=== PATIENT | female | born 1965 | race African-American/Black ===

== ENCOUNTER 2022-09-17 12:10 | Emergency (ER) | payer OTHER, SELFPAY ==
[2022-09-17] VITALS (14 sets, daily range): BP systolic 127–180; BP diastolic 78–97; PULSE 58–72; RESP 20; TEMP 36.1; O2SAT 93–97; BMI 36.2
--- NOTE | 2022-09-17 12:45 | CRLHL7_ITS ---
For Patients: As a result of the Century Cures Act, medical imaging exams and procedure reports are released immediately into your electronic medical record. You may view this report before your referring provider. If you have questions, please contact your health care provider. INDICATION: Dyspnea and chest pain COMPARISON: None TECHNIQUE: PA and lateral views of the chest were acquired FINDINGS: TUBES AND LINES: None. HEART AND MEDIASTINUM: The heart size is normal. The mediastinal contour appears normal for patient age. LUNGS AND PLEURAL SPACES: The lungs appear normal.The pleural spaces are unremarkable. OSSEOUS STRUCTURES: Age-appropriate appearance. No acute focal finding. IMPRESSION: No evidence of active pulmonary disease. Dictated by Trevor Orellana MD @ 09/17/2022 2:02:40 PM (Electronically Signed)
--- NOTE | 2022-09-17 12:47 | ED.GENADULT ---
HPI - General Adult General Chief complaint: Chest Pain Stated complaint: Chest pain Time Seen by Provider: 09/17/22 12:27 Source: patient Mode of arrival: ambulatory Limitations: no limitations History of Present Illness HPI narrative: Patient is a 56-year-old female coming in today complaining of chest pain. Pain is located over the right chest. Nothing seems to make it better however sitting up and leaning forward does make it worse. She describes it as a pressure, uncomfortable sensation. Patient states that she exercises several times per week but has not been able exercise over the last week because she has been having some back discomfort. She states that she sits in a chair in zoom meetings most of her day. Increase physical activity does not seem to make her pain worse. The pain started last night right before she went to bed. He did not necessarily wake her up at night but she did have an uncomfortable night of sleep. When she woke up this morning it was still there unchanged. She also was having some floaters in her eye so she went to the eye clinic, was told that she had a new floater but that her eye health was normal. She then came here for evaluation. She denies any recent fevers or chills however she has been coughing. 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 She does have a past medical history significant for obesity, hypertension, hyperlipidemia. She denies any diabetes, tobacco use. She denies any recent traveling. She denies any history of blood clots. She denies any recent surgery. Related Data Home Medications Medication Instructions Recorded Confirmed amlodipine 10 mg tablet 10 mg PO DAILY 09/17/22 09/17/22 azelastine 137 mcg (0.1 %) nasal 1 spray intranasal DAILY PRN 09/17/22 09/17/22 spray aerosol hydrochlorothiazide 25 mg tablet 25 mg PO DAILY 09/17/22 09/17/22 rosuvastatin 20 mg tablet 20 mg PO DAILY 09/17/22 09/17/22 venlafaxine 75 mg capsule,extended 75 mg PO DAILY 09/17/22 09/17/22 release 24 hr Allergies Allergy/AdvReac Type Severity Reaction Status Date / Time adhesive Allergy Verified 09/17/22 12:38 codeine Allergy Vomiting Verified 09/17/22 12:38 lidocaine Allergy Fainting Verified 09/17/22 12:38 Penicillins Allergy Verified 09/17/22 12:38 Review of Systems Status of ROS: Reports: 10 or more systems reviewed and unremarkable except as noted in History and below [facility] Social History Smoking Status: Never smoker How often do you have a drink containing alcohol: never How often do you have six or more drinks on one occasion: Never AUDIT-C Alcohol total score: 0 Non-prescribed substance use: denies use Exam Narrative: Exam Narrative: Overweight, well-developed patient in no acute distress. Alert and oriented. Answers questions appropriately. Mood and affect are appropriate. Thoughts are goal oriented and rational. No tangential or magical thinking noted. Patient speaks in full sentences without needing to catch their breath. HEENT: Normocephalic atraumatic. Pupils are equally round reactive to light. Extraocular muscles are intact. Conjunctivae are moist without any icterus noted. Moist mucous membranes. Posterior pharynx is normal. Neck is soft without any lymphadenopathy or thyromegaly. No masses are appreciated. Cardiovascular: Heart is regular rate and rhythm S1 and S2 are present without any murmurs. She has mildly increased discomfort when pressure is applied to the right anterior chest wall. Lungs: Clear to auscultation bilaterally no wheezes rhonchi or rales are appreciated. Patient takes deep breaths without any discomfort. Abdomen: Soft and nontender nondistended with normal bowel sounds. No guarding or rebound. Extremities: Bilateral lower extremities are without edema. Normal DP and PT pulses. Skin: Well perfused without any obvious rashes. Const: Vital Signs, click to edit/add: Vital Signs - 24 hr 09/17/22 12:32 09/17/22 12:45 09/17/22 12:40 Temperature 97.0 F L Pulse Rate 72 Pulse Rate [Pulse Oximeter] 69 Respiratory Rate 20 Blood Pressure Blood Pressure [Le ft Upper Arm] 180/97 H Pulse Oximetry 96 95 97 Oxygen Delivery Me thod Room Air 09/17/22 13:01 09/17/22 13:02 09/17/22 13:03 Temperature Pulse Rate 65 63 69 Pulse Rate [Pulse Oximeter] Respiratory Rate Blood Pressure 140/83 H Blood Pressure [Le ft Upper Arm] Pulse Oximetry 95 93 94 Oxygen Delivery Me thod 09/17/22 13:32 09/17/22 14:00 09/17/22 14:02 Temperature Pulse Rate 63 63 65 Pulse Rate [Pulse Oximeter] Respiratory Rate Blood Pressure 127/80 160/78 H Blood Pressure [Le ft Upper Arm] Pulse Oximetry 93 93 94 Oxygen Delivery Me thod 09/17/22 14:32 09/17/22 14:33 Temperature Pulse Rate 58 L 68 Pulse Rate [Pulse Oximeter] Respiratory Rate Blood Pressure 145/78 H Blood Pressure [Le ft Upper Arm] Pulse Oximetry 93 93 Oxygen Delivery Fl thod Course Course Hospital Course: Lab work was entirely unremarkable. EKG, read by me, shows normal sinus rhythm with a premature atrial complex. Chest x-ray, read by me, was unremarkable. Serial troponins were within normal limits. We discussed possible causes of chest pain including coronary artery disease, PE, pneumothorax, pneumonia, aortic dissection. Given the nature of her pain, normal imaging and normal blood work, these possibilities are much less likely. We discussed pleurisy or musculoskeletal pain being more likely. At this time we will treat with NSAIDs, rest. I do want her to return to the ER if her symptoms worsen course. Like for to follow up with primary care provider in the next week. Patient was agreeable with everything we discussed had no other questions. Vital Signs Vital signs: Initial Vital Signs Temperature 97.0 F L 09/17/22 12:32 Temperature Source Temporal Artery Scan 09/17/22 12:32 Pulse Rate 69 09/17/22 12:32 Respiratory Rate 20 09/17/22 12:32 Blood Pressure 180/97 H 09/17/22 12:32 Blood Pressure Mean 124 09/17/22 12:32 Blood Pressure Position Semi-Fowlers 09/17/22 12:32 Pulse Oximetry 96 09/17/22 12:32 Oxygen Delivery Method 09/17/22 12:32 Vital Signs Temperature 97.0 F L 09/17/22 12:32 Pulse Rate 69 09/17/22 12:32 Respiratory Rate 20 09/17/22 12:32 Blood Pressure 180/97 H 09/17/22 12:32 Pulse Oximetry 96 09/17/22 12:32 Oxygen Delivery Method 09/17/22 12:32 Temperature 97.0 F L 09/17/22 12:32 Pulse Rate 68 12/16/22 14:33 Respiratory Rate 20 09/17/22 12:32 Blood Pressure 145/78 H 09/17/22 14:32 Pulse Oximetry 93 09/17/22 14:33 Oxygen Delivery Method 09/17/22 12:32 Medical Decision Making MDM Narrative Medical decision making narrative: 56-year-old female with chest pain-we discussed pleurisy versus musculoskeletal pain and appropriate follow-up. Care per above Lab Data Lab results reviewed: Yes I reviewed the patient's lab results Labs: Lab Results 09/17/22 09/17/22 09/17/22 Range/Units 12:45 13:00 13:00 WBC 4.52 (4.50-11.00) K/uL RBC 4.59 (4.00-5.20) m/uL Hgb 14.0 (12.0-16.0) gm/dL Hct 41.8 (33.0-51.0) % MCV 91 (80-100) fL MCH 31 (26-34) pg MCHC 34 (32-36) gm/dL RDW Coeff of Aaliyah 11.8 (11.5-15.5) % Plt Count 262 (140-440) K/uL Neut % (Auto) 39.2 L (42.0-72.0) % Lymph % (Auto) 45.8 H (20-44) % [place] % (Auto) 9.7 (0.0-11.0) % Eos % (Auto) 4.6 (0.0-7.0) % Baso % (Auto) 0.7 (0.0-3.0) % Neut # (Auto) 1.80 (1.7-7.0) K/uL Lymph # (Auto) 2.10 (0.90-2.90) K/uL [place] # (Auto) 0.40 (0.00-0.90) K/UL Eos # (Auto) 0.21 (0.00-0.50) K/uL Baso # (Auto) 0.03 (0.00-0.30) K/uL D-Dimer Quant (PE/DVT) 0.38 (0.00-0.50) ug/ml Sodium (135-149) mmol/L Potassium (3.6-5.1) mmol/L Chloride (96-114) mmol/L Carbon Dioxide (20-32) mmol/L BUN (7-30) mg/dL Creatinine (0.5-1.5) mg/dL Estimated Creat Clear Estimated GFR ml/min Glucose (60-115) mg/dL Calcium (8.4-10.6) mg/dL Total Bilirubin (0.1-1.5) mg/dL Direct Bilirubin (0.0-0.5) mg/dL AST (12-35) U/L ALT (4-35) U/L Alkaline Phosphatase (40-150) U/L Troponin I (0.01-0.04) ng/mL C-Reactive Protein (0.5-1.0) mg/dL Total Protein (6.0-8.3) g/dL Albumin (3.3-5.0) g/dL Lipase (23-300) U/L SARS-CoV-2 (PCR) Negative SARS-CoV-2 (Negative) Influenza Type A (PCR) Negative PCR FLU A (Negative) Influenza Type B (PCR) Negative PCR FLU B (Negative) RSV (PCR) Negative PCR RSV (Negative) POC Troponin I (0.01-0.04) ng/ml 09/17/22 09/17/22 09/17/22 Range/Units 13:00 13:00 14:30 WBC (4.50-11.00) K/uL RBC (4.00-5.20) m/uL Hgb (12.0-16.0) gm/dL Hct (33.0-51.0) % MCV (80-100) fL MCH (26-34) pg MCHC (32-36) gm/dL RDW Coeff of Aaliyah (11.5-15.5) % Plt Count (140-440) K/uL Neut % (Auto) (42.0-72.0) % Lymph % (Auto) (20-44) % [place] % (Auto) (0.0-11.0) % Eos % (Auto) (0.0-7.0) % Baso % (Auto) (0.0-3.0) % Neut # (Auto) (1.7-7.0) K/uL Lymph # (Auto) (0.90-2.90) K/uL [place] # (Auto) (0.00-0.90) K/UL Eos # (Auto) (0.00-0.50) K/uL Baso # (Auto) (0.00-0.30) K/uL D-Dimer Quant (PE/DVT) (0.00-0.50) ug/ml Sodium 140 (135-149) mmol/L Potassium 3.2 L (3.6-5.1) mmol/L Chloride 104 (96-114) mmol/L Carbon Dioxide 32 (20-32) mmol/L BUN 13 (7-30) mg/dL Creatinine 0.7 (0.5-1.5) mg/dL Estimated Creat Clear 91.55 Estimated GFR 100 ml/min Glucose 118 H (60-115) mg/dL Calcium 9.0 (8.4-10.6) mg/dL Total Bilirubin 0.5 (0.1-1.5) mg/dL Direct Bilirubin 0.1 (0.0-0.5) mg/dL AST 35 (12-35) U/L ALT 24 (4-35) U/L Alkaline Phosphatase 57 (40-150) U/L Troponin I < 0.01 L (0.01-0.04) ng/mL C-Reactive Protein < 0.5 L (0.5-1.0) mg/dL Total Protein 7.8 (6.0-8.3) g/dL Albumin 4.3 (3.3-5.0) g/dL Lipase 114 (23-300) U/L SARS-CoV-2 (PCR) (Negative) Influenza Type A (PCR) (Negative) Influenza Type B (PCR) (Negative) RSV (PCR) (Negative) POC Troponin I 0.00 L (0.01-0.04) ng/ml Imaging Data Chest x-ray: Attestation: I have reviewed the pertinent imaging results. Radiologist's impression: PA and lateral views of the chest were acquired FINDINGS: TUBES AND LINES: None. HEART AND MEDIASTINUM: The heart size is normal. The mediastinal contour appears normal for patient age. LUNGS AND PLEURAL SPACES: The lungs appear normal.The pleural spaces are unremarkable. OSSEOUS STRUCTURES: Age-appropriate appearance. No acute focal finding. IMPRESSION: No evidence of active pulmonary disease. ECG Data Attestation: I personally reviewed and interpreted this ECG as follows: (Normal sinus rhythm, premature atrial complex, pulse 68) Discharge Plan Discharge Clinical Impression: Chest pain Patient Disposition: Home, Self-Care Condition: Stable Additional Instructions: As we discussed today, possible causes of pain are pleurisy (irritation of the lining of the lung) or chest muscle wall pain. At this time recommend ibuprofen 400-600 mg every 8 hours as needed. You can also use a heating pad to the chest wall to see if this helps. Recommend you follow-up with your primary care provider this coming week. Return to the emergency department if your symptoms get worse. Prescriptions: No Action amlodipine 10 mg tablet 10 mg PO DAILY Label Comments: TAKE ONE TABLET BY MOUTH ONE TIME DAILY azelastine 137 mcg (0.1 %) aerosol,spray 1 spray INTRANASAL DAILY PRN Label Comments: SPRAY ONCE INTO EACH NOSTRIL DAILY. hydrochlorothiazide 25 mg tablet 25 mg PO DAILY Label Comments: TAKE ONE TABLET BY MOUTH ONE TIME DAILY rosuvastatin 20 mg tablet 20 mg PO DAILY Label Comments: TAKE ONE TABLET BY MOUTH ONE TIME DAILY venlafaxine 75 mg capsule,extended release 24hr 75 mg PO DAILY Label Comments: Take 1 Capsule (75 mg) by mouth once daily with a meal Follow Up/Referrals: Iwona Del Rio MD [Primary Care Provider] - Stand Alone Forms: [employer] Info Instructions
[2022-09-17 13:12] LABS: Basophils Absolute Auto 0.03 K/uL (0.00-0.30); Basophils Percent Auto 0.7 % (0.0-3.0); Eosinophils Absolute Auto 0.21 K/uL (0.00-0.50); Eosinophils Percent Auto 4.6 % (0.0-7.0); Hematocrit 41.8 % (33.0-51.0); Lymphocytes Percent Auto 45.8 % (20-44); Mean Corpuscular HGB Conc 34 gm/dL (32-36); Mean Corpuscular Hemoglobin 31 pg (26-34); Mean Corpuscular Volume 91 fL (80-100); Monocytes Percent Auto 9.7 % (0.0-11.0); Neutrophils Percent Auto 39.2 % (42.0-72.0); Platelet Count* 262 K/uL (140-440); RDW Coefficient of Variation % 11.8 % (11.5-15.5); Red Blood Count 4.59 m/uL (4.00-5.20); Slide Review Reflex No; White Blood Count* 4.52 K/uL (4.50-11.00)
[2022-09-17 13:25] LABS: Albumin* 4.3 g/dL (3.3-5.0); Chloride* 104 mmol/L (96-114)
[2022-09-17 13:26] LABS: Lipase* 114 U/L (23-300); Potassium* 3.2 mmol/L (3.6-5.1); Sodium* 140 mmol/L (135-149)
[2022-09-17 13:28] LABS: Alkaline Phosphatase* 57 U/L (40-150); Aspartate Amino Transferase* 35 U/L (12-35); Bilirubin Direct* 0.1 mg/dL (0.0-0.5); Bilirubin Total* 0.5 mg/dL (0.1-1.5); Carbon Dioxide* 32 mmol/L (20-32); Creatinine* 0.7 mg/dL (0.5-1.5); Est. Creatinine Clearance* 91.55; Estimated Glomerular Filt Rate 100 ml/min; Total Protein* 7.8 g/dL (6.0-8.3)
[2022-09-17 13:29] LABS: Alanine Aminotransferase* 24 U/L (4-35); Blood Urea Nitrogen* 13 mg/dL (7-30); Glucose* 118 mg/dL (60-115)
[2022-09-17 13:32] LABS: C Reactive Protein* < 0.5 mg/dL (0.5-1.0); D Dimer Quantitative* 0.38 ug/ml (0.00-0.50)
[2022-09-17 13:47] LABS: PCR FLU A Negative PCR FLU A (Negative); PCR FLU B Negative PCR FLU B (Negative); PCR RSV Negative PCR RSV (Negative)
[2022-09-17 13:52] LABS: Troponin I* < 0.01 ng/mL (0.01-0.04)
[2022-09-17 13:52] LABS: SARS PCR* Negative SARS-CoV-2 (Negative)
== END 2022-09-17 15:12 | disposition home or self-care (01) ==
PROVIDERS: Emergency Provider Family Medicine; PCP Family Medicine
DX: R07.9 Chest pain, unspecified (principal)
CPT/HCPCS: 36415; 71046; 80048; 80076; 83690; 84484; 85025; 85379; 86140; 87502; 87634; 87635; 93005; 94761; 99284; 99285

== ENCOUNTER 2023-07-30 16:34 | Emergency (ER) | payer OTHER, SELFPAY ==
[2023-07-30 17:16] VITALS: BP 138/83; PULSE 72; RESP 20; TEMP 36.3; O2SAT 97; BMI 34.7
--- NOTE | 2023-07-30 18:50 | CRLHL7_ITS ---
For Patients: As a result of the Century Cures Act, medical imaging exams and procedure reports are released immediately into your electronic medical record. You may view this report before your referring provider. If you have questions, please contact your health care provider. INDICATION: Abdominal pain COMPARISON: None. TECHNIQUE: CT of the abdomen and pelvis after the administration of intravenous contrast. Multiplanar axial, coronal, and sagittal reformats were reconstructed. Contrast: 116 mL Isovue 370 intravenously. Oral contrast was not administered. FINDINGS: Lung bases: Normal. Liver: Normal. No masses. Normal vasculature. Gallbladder and biliary tree: Normal gallbladder. No biliary duct dilation. Pancreas: Normal. Spleen: Normal. Normal size. Adrenal glands: Normal. No nodules. Kidneys and bladder: Normal size and position. Left upper pole simple cyst measures 3 cm. Right lower pole simple cyst measures 1 cm no calculi. No urinary tract dilation. The urinary bladder is normal. GI: Few colonic diverticula without diverticulosis.. No dilated segments. No abnormal bowel wall thickening or hyperenhancement. Moderate stool burden. The appendix is normal. Vessels: Aorta and major branches, including the mesenteric vessels: Patent. Normal caliber. No atherosclerotic plaques. IVC and tributaries: Normal. Mesenteric and portal veins: Normal. Peritoneum: No free fluid. Lymph nodes: No adenopathy. Pelvis: Physiologic appearance of the reproductive organs. Surgical material in the region of both fallopian tubes. Bones: No fractures. No focal bone lesions. Multilevel disc degeneration and facet arthropathy.. Abdominal wall: Linear stranding in the inferior abdominal wall both sides of the midline, probably scar tissue. IMPRESSION: IMPRESSIONNo CT explanation for the patient`s abdominal pain. No acute or worrisome findings. Please note that all CT scans at this facility use dose modulation, iterative reconstruction, and/or weight-based dosing when appropriate to reduce radiation dose to as low as reasonably achievable. Dictated by Barbara Lance MD @ 07/30/2023 7:48:59 PM (Electronically Signed)
--- NOTE | 2023-07-30 18:51 | ED_ITS ---
HPI - Abdominal Pain General Chief Complaint: Abdominal Pain Stated Complaint: Cough, hernia Time Seen by Provider: 07/30/23 17:05 History of Present Illness HPI narrative: This patient comes in reporting lower abdominal pain over the past few days. She states that she was coughing really hard and developed pain in her lower abdomen and wonders if she might be developing a hernia. She does not report any bulge or protrusion but does have reproducible pain with movement and coughing. She has had loss of appetite in the last day or so. She does not report any fevers. Related Data Home Medications Medication Instructions Recorded Confirmed amlodipine 10 mg tablet 10 mg PO DAILY 09/17/22 07/24/23 azelastine 137 mcg (0.1 %) nasal 1 spray intranasal DAILY PRN 09/17/22 07/24/23 spray aerosol hydrochlorothiazide 25 mg tablet 25 mg PO DAILY 09/17/22 07/24/23 rosuvastatin 20 mg tablet 20 mg PO DAILY 09/17/22 07/24/23 venlafaxine 75 mg capsule,extended 75 mg PO DAILY 09/17/22 07/24/23 release 24 hr metformin 850 mg tablet 850 mg PO BID 07/22/23 07/24/23 Previous Rx's Medication Instructions Recorded albuterol sulfate 90 mcg/actuation 2 puff inhalation Q4-6H PRN 07/22/23 aerosol inhaler shortness of breath or wheezing 10 days #8.5 grams azithromycin 250 mg tablet See Rx Instructions PO .COMPLEX #6 07/24/23 tabs prednisone 20 mg tablet 20 mg PO BID #10 tabs 07/24/23 Allergies Allergy/AdvReac Type Severity Reaction Status Date / Time adhesive Allergy Verified 07/24/23 10:44 codeine Allergy Vomiting Verified 07/24/23 10:44 lidocaine Allergy Fainting Verified 07/24/23 10:44 Penicillins Allergy Verified 07/24/23 10:44 Review of Systems Status of ROS Reports: 10 or more systems reviewed and unremarkable except as noted in History and below Narrative Constitutional: No fevers, no weight gain or loss. Eyes: No discharge. No vision changes. HENT: No congestion, no sore throat, no ear pain. Cardiovascular: No chest pain, no palpitations. Respiratory: No shortness of breath, no wheezes, no cough. Gastrointestinal: No vomiting, no diarrhea. Abdominal pain as described above. Loss of appetite. Genitourinary: No dysuria, no hematuria. Musculoskeletal: Normal range of motion. Skin: No rashes, no pruritis. Neurological: No dizziness, weakness, sensory change, speech change. Endo/Heme/Allergies: No bruising or bleeding. No polydipsia. Pysch: no suicidality, no anxiety, no insomnia. All other systems reviewed and are negative. [facility] Social History Smoking Status: Never smoker Do you use any of these nicotine containing products: None Second hand tobacco smoke exposure: No How often do you have a drink containing alcohol: never How often do you have six or more drinks on one occasion: Never AUDIT-C Alcohol total score: 0 Non-prescribed substance use: denies use service: No Exam Narrative: Exam Narrative: Constitutional: Well-developed, well-nourished, no acute distress. HEENT: Normocephalic, atraumatic. Neck: Normal range of motion. Nontender. Supple. Heart: Regular. No murmurs. Normal rate. Intact distal pulses. Lungs: Clear to auscultation. No chest discomfort. No wheezes, rhonchi, or rales. Abdomen: Normal bowel sounds. Tenderness across the lower abdomen. Rebound tenderness is present. Genitalia: Deferred. Back: No midline tenderness. Normal range of motion. Extremities: Normal range of motion. No injury. Skin: Intact. No rash. Warm. No erythema or pallor. Neurologic: No altered sensation. No weakness. Alert and oriented. Psychiatric: No suicidality. No anxiety or depression. No insomnia. Nursing notes and vitals signs are reviewed. Const: Vital Signs, click to edit/add: Vital Signs - 24 hr 07/30/23 17:16 Temperature 97.3 F L Pulse Rate [Pulse Oximeter] 72 Respiratory Rate 20 Blood Pressure [Ri ght Upper Arm] 138/83 Pulse Oximetry 97 Oxygen Delivery Me thod Room Air Course Vital Signs Vital signs: Initial Vital Signs Temperature 97.3 F L 07/30/23 17:16 Temperature Source Temporal Artery Scan 07/30/23 17:16 Pulse Rate 72 07/30/23 17:16 Pulse Rhythm Regular 07/30/23 17:16 Respiratory Rate 20 07/30/23 17:16 Blood Pressure 138/83 07/30/23 17:16 Blood Pressure Mean 101 07/30/23 17:16 Blood Pressure Position Sitting 07/30/23 17:16 Pulse Oximetry 97 07/30/23 17:16 Oxygen Delivery Method Room Air 07/30/23 17:16 Vital Signs Temperature 97.3 F L 07/30/23 17:16 Pulse Rate 72 07/30/23 17:16 Respiratory Rate 20 07/30/23 17:16 Blood Pressure 138/83 07/30/23 17:16 Pulse Oximetry 97 07/30/23 17:16 Oxygen Delivery Method Room Air 07/30/23 17:16 Temperature 97.3 F L 07/30/23 17:16 Pulse Rate 72 07/30/23 17:16 Respiratory Rate 20 07/30/23 17:16 Blood Pressure 138/83 07/30/23 17:16 Pulse Oximetry 97 07/30/23 17:16 Oxygen Delivery Method Room Air 07/30/23 17:16 MDM - Abdominal Pain MDM Narrative Medical decision making narrative: This patient comes in with pain across her lower abdomen this started when she was coughing heavily. She can reproduce this pain with coughing and with certain movements. She wonders if she is developing hernia. On IV is established and labs are acquired. CT imaging of the abdomen and pelvis shows no acute findings and lab results are reassuring also. There is no evidence of any herniation or defect in the abdominal musculature. It does seem that this is a muscle strain as it is reproducible pain. The patient is okay to be discharged home. She did receive an abdominal binder and a prescription for Toradol. Lab Data Labs: Lab Results 07/30/23 Range/Units 19:01 WBC 14.78 H (4.50-11.00) K/uL RBC 5.02 (4.00-5.20) m/uL Hgb 15.0 (12.0-16.0) gm/dL Hct 46.2 (33.0-51.0) % MCV 92 (80-100) fL MCH 30 (26-34) pg MCHC 33 (32-36) gm/dL RDW Coeff of Aaliyah 11.8 (11.5-15.5) % Plt Count 339 (140-440) K/uL Neut % (Auto) 65.9 (42.0-72.0) % Lymph % (Auto) 23.3 (20-44) % [place] % (Auto) 8.0 (0.0-11.0) % Eos % (Auto) 2.5 (0.0-7.0) % Baso % (Auto) 0.2 (0.0-3.0) % Neut # (Auto) 9.70 H (1.7-7.0) K/uL Lymph # (Auto) 3.40 H (0.90-2.90) K/uL [place] # (Auto) 1.20 H (0.00-0.90) K/UL Eos # (Auto) 0.40 (0.00-0.50) K/uL Baso # (Auto) 0.00 (0.00-0.30) K/uL Abs Immat Gran (auto) 0.00 (0.00-0.30) K/uL Imm/Tot Granulo (auto) 0.1 % Sodium 138 (135-149) mmol/L Potassium 3.2 L (3.6-5.1) mmol/L Chloride 99 (96-114) mmol/L Carbon Dioxide 34 H (20-32) mmol/L Anion Gap 5 L (7-15) mEq/L BUN 14 (7-30) mg/dL Creatinine 0.7 (0.5-1.5) mg/dL Estimated Creat Clear 90.43 Estimated GFR 100 ml/min Glucose 86 (60-115) mg/dL Calcium 9.0 (8.4-10.6) mg/dL Imaging Data CT scan - abdomen: Radiologist's impression: No CT explanation for the patient`s abdominal pain. No acute or worrisome findings. Discharge Plan Discharge Clinical Impression: Abdominal muscle strain Patient Disposition: Home, Self-Care Condition: Stable Additional Instructions: Wear abdominal binder as needed. Take medication as prescribed. Follow up with MD return if worsening. Prescriptions: No Action metformin 850 mg tablet 850 mg PO BID albuterol sulfate 90 mcg/actuation HFA aerosol inhaler 2 puff inhalation Q4-6H PRN (Reason: shortness of breath or wheezing) 10 Days Qty: 8.5 0RF prednisone 20 mg tablet 20 mg PO BID Qty: 10 0RF azithromycin 250 mg tablet See Rx Instructions PO .COMPLEX Qty: 6 0RF Rx Instructions: For 250 mg dose pack: take 500 mg today (day 1), then 250 mg for 4 days (days 2-5) PO amlodipine 10 mg tablet 10 mg PO DAILY Patient Comments: TAKE ONE TABLET BY MOUTH ONE TIME DAILY azelastine 137 mcg (0.1 %) aerosol,spray 1 spray INTRANASAL DAILY PRN Patient Comments: SPRAY ONCE INTO EACH NOSTRIL DAILY. hydrochlorothiazide 25 mg tablet 25 mg PO DAILY Patient Comments: TAKE ONE TABLET BY MOUTH ONE TIME DAILY rosuvastatin 20 mg tablet 20 mg PO DAILY Patient Comments: TAKE ONE TABLET BY MOUTH ONE TIME DAILY venlafaxine 75 mg capsule,extended release 24hr 75 mg PO DAILY Patient Comments: Take 1 Capsule (75 mg) by mouth once daily with a meal Follow Up/Referrals: Iwona Del Rio MD [Primary Care Provider] - Stand Alone Forms: [employer] Info Instructions
[2023-07-30 19:06] LABS: Red Blood Count 5.02 m/uL (4.00-5.20); White Blood Count* 14.78 K/uL (4.50-11.00)
[2023-07-30 19:07] LABS: Basophils Percent Auto 0.2 % (0.0-3.0); Eosinophils Percent Auto 2.5 % (0.0-7.0); Hematocrit 46.2 % (33.0-51.0); Immature Granulocytes Pct Auto 0.1 %; Lymphocytes Percent Auto 23.3 % (20-44); Mean Corpuscular HGB Conc 33 gm/dL (32-36); Mean Corpuscular Hemoglobin 30 pg (26-34); Mean Corpuscular Volume 92 fL (80-100); Neutrophils Percent Auto 65.9 % (42.0-72.0); Platelet Count* 339 K/uL (140-440); RDW Coefficient of Variation % 11.8 % (11.5-15.5)
[2023-07-30 19:08] LABS: Slide Review Reflex No
[2023-07-30 19:20] LABS: Chloride* 99 mmol/L (96-114); Potassium* 3.2 mmol/L (3.6-5.1); Sodium* 138 mmol/L (135-149)
[2023-07-30 19:23] LABS: Anion Gap 5 mEq/L (7-15); Blood Urea Nitrogen* 14 mg/dL (7-30); Carbon Dioxide* 34 mmol/L (20-32); Creatinine* 0.7 mg/dL (0.5-1.5); Est. Creatinine Clearance* 90.43; Estimated Glomerular Filt Rate 100 ml/min; Glucose* 86 mg/dL (60-115)
== END 2023-07-30 20:15 | disposition home or self-care (01) ==
PROVIDERS: Emergency Provider Emergency Medicine Emergency Medical Services; PCP Family Medicine
DX: S39.011A Strain of muscle, fascia and tendon of abdomen, initial encounter (principal)
CPT/HCPCS: 36415; 74177; 80048; 81001; 85025; 99284; 99285; Q9967

== ENCOUNTER 2025-03-14 15:10 | Outpatient (CLI) | payer BC, SELFPAY | END 2025-03-14 15:11 | disposition home or self-care (01) | LOC: NFLDREF 03-15 01:34 | PROVIDERS: PCP Family Medicine; Referring Provider Family Medicine; Visit Provider Orthopaedic Surgery Sports Medicine | DX: M25.561 Pain in right knee (principal); M25.461 Effusion, right knee; Z96.651 Presence of right artificial knee joint | CPT/HCPCS: 87070; 87075; 87205; 89051; 89060 ==

== ENCOUNTER 2025-03-20 10:00 | Inpatient (IN) | payer BC, SELFPAY ==
[2025-03-20] VITALS (21 sets, daily range): BP systolic 98–161; BP diastolic 63–89; PULSE 54–83; RESP 12–18; TEMP 36–36.4; O2SAT 90–98; BMI 34.2
[2025-03-20] MEDS: LACTATED RINGERS 1000 ML 1,000 ML 100 ML IV (10:35)
[2025-03-20] MEDS: SODIUM CHLORIDE 0.9 % (FLUSH) 10 ML SYRINGE IVF (10:35)
[2025-03-20] MEDS: ACETAMINOPHEN 500 MG TABLET 1000 MG PO ×2 (10:40→19:24)
[2025-03-20] MEDS: OXYCODONE (CR) 10 MG TAB.ER.12H PO (10:40)
--- NOTE | 2025-03-20 10:59 | W.PM.H&PU ---
History & Physical Update History & Physical Update H&P Updates: Her knee aspiration return with 07130+ WBCs and 89% of which were PMNs. Highly suspicious of infection with that alone. The fluid was also cloudy. There is approximately 20 mL of fluid aspirated on the day of clinic last week 03/14/2024. Crystals return negative. G stain and cultures also were negative/grew out nothing. Serum labs were intended to be sent, but apparently some type of staff who with the paperwork met the patient did not receive the labs that we intended (ESR, CRP, procalcitonin). She still does not have any fevers or chills or other systemic signs of infection. She had no preceding illnesses or infectious pathology that she was aware of. She does not report any puncture wounds or skin breakdown regions. The plan today is for extensive/major synovectomy to the right knee, thorough irrigation and debridement, polyethylene exchange, and antibiotic bead placement.
[2025-03-20] MEDS: fentaNYL 100 MCG/2 ML inj IVP (11:55)
[2025-03-20] MEDS: MIDAZOLAM HCL 1 MG/ML inj IVP (11:55)
--- NOTE | 2025-03-20 11:56 | SUR.PREOP ---
TIME?OUT:?1154 PT/RN/MDA?VERIFICATION?OF?SURGICAL?SITE-RIGHT KNEE,? NERVE BLOCK, PROCEDURE,?AND?CONSENT OBTAINED?PRIOR?TO?INVASIVE?PROCEDURE.
--- NOTE | 2025-03-20 12:25 | CRLHL7_ITS ---
For Patients: As a result of the Cures Act, medical imaging exams and procedure reports are released immediately into your electronic medical record. You may view this report before your referring provider. If you have questions, please contact your health care provider. Indication: Postop Technique: Two portable views of the right knee Comparison: 03/14/2025 IMPRESSION: Status post placement of antibiotic beads within the soft tissues about the distal femur. Hardware intact. No fracture. Dictated by Eron Melgar MD @ 03/21/2025 12:08:53 PM (Electronically Signed)
--- NOTE | 2025-03-20 12:27 | W.PM.NB ---
Nerve Block Nerve Block Time Seen by Provider: 12:00 Date Seen: 03/20/25 Type of block requested by surgeon for post-operative analgesia: adductor canal Side: right Time out performed: Yes Verification of patient name: Yes Verification of date of : Yes Site marking: site marked Name of person performing procedure: Oscar Continuous monitoring Was continuous monitoring of O2 sat, B/P, medical office secretary, recorded every 15 minutes?: Yes Procedure Checklist: sterile prep, needles and gloves Ultrasound guided. Images saved: Yes Medications given in 5ml increments after negative aspiration: Marcaine %: 0.25 mL: 15 Needle gauge: 20 Precedex (mcg): 25 Patient tolerated procedure well: Yes Block Charges Block Charge (with Pro Fee): Femoral Nerve Use of Ultrasound Machine for Block: Yes- US Guidance/pain block
--- NOTE | 2025-03-20 12:27 | W.PM.NB ---
Nerve Block Nerve Block Time Seen by Provider: 12:00 Date Seen: 03/20/25 Type of block requested by surgeon for post-operative analgesia: geniculars Side: right Time out performed: Yes Verification of patient name: Yes Verification of date of : Yes Site marking: site marked Name of person performing procedure: Oscar Continuous monitoring Was continuous monitoring of O2 sat, B/P, cardiac technician, recorded every 15 minutes?: Yes Procedure Checklist: sterile prep, needles and gloves Ultrasound guided. Images saved: Yes Medications given in 5ml increments after negative aspiration: Marcaine %: 0.25 mL: 9 Needle gauge: 25 Patient tolerated procedure well: Yes Block Charges Block Charge (with Pro Fee): Genicular Nerve Block
--- NOTE | 2025-03-20 12:28 | P.ANES_ITS ---
Anesthesia Charges Start Date/Time Anesthesia Start Date: 03/20/25 Anesthesia Start Time: 12:04 Stop Date/Time Anesthesia Stop Date: 03/20/25 Anesthesia Stop Time: 14:39 Coding CPT Codes CPT Codes: ANESTH KNEE ARTHROPLASTY - 34180 ([id number]) P2 - PATIENT W/MILD SYST DISEASE, QK - FLAKING ROLL OPERATOR 2-4 CNCRNT ANES PROC, QX - CNC MACHINE SETTER SVC W/ MD MED DIRECTION
--- NOTE | 2025-03-20 12:28 | W.ANESCHARGE ---
Anesthesia Charges Start Date/Time Anesthesia Start Date: 03/20/25 Anesthesia Start Time: 12:04 Stop Date/Time Anesthesia Stop Date: 03/20/25 Anesthesia Stop Time: 14:39 Coding CPT Codes CPT Codes: ANESTH KNEE ARTHROPLASTY - 21590 ([id number]) P2 - PATIENT W/MILD SYST DISEASE, QK - DELIVERY ARCHITECT 2-4 CNCRNT ANES PROC, QX - OPERATIONS AND MAINTENANCE MANAGER SVC W/ MD MED DIRECTION
--- NOTE | 2025-03-20 13:15 | SUR.OPER ---
CULTURES: A) RIGHT KNEE SYNOVIAL FLUID, B) RIGHT KNEE RETRO PATELLAR, C) SUPRA-PATELLAR RIGHT KNEE, D) RIGHT KNEE NOTCH
--- NOTE | 2025-03-20 14:24 | SUR.OPER ---
2 VIALS OF TOBRAMYCIN 1.2 GRAMS WAS MIXED IN WITH CEMENT TO MAKE ANTIBIOTIC BEADS
--- NOTE | 2025-03-20 14:39 | P.ANES_ITS ---
Anesthesia Charges Start Date/Time Anesthesia Start Date: 03/20/25 Anesthesia Start Time: 12:04 Stop Date/Time Anesthesia Stop Date: 03/20/25 Anesthesia Stop Time: 14:39 Coding CPT Codes CPT Codes: ANESTH KNEE ARTHROPLASTY - 49260 ([id number]) P2 - PATIENT W/MILD SYST DISEASE, QK - RADIO EQUIPMENT REPAIRER 2-4 CNCRNT ANES PROC, QX - DENTURE MODEL MAKER SVC W/ MD MED DIRECTION
--- NOTE | 2025-03-20 14:39 | W.ANESCHARGE ---
Anesthesia Charges Start Date/Time Anesthesia Start Date: 03/20/25 Anesthesia Start Time: 12:04 Stop Date/Time Anesthesia Stop Date: 03/20/25 Anesthesia Stop Time: 14:39 Coding CPT Codes CPT Codes: ANESTH KNEE ARTHROPLASTY - 14393 ([id number]) P2 - PATIENT W/MILD SYST DISEASE, QK - KETTLE CLEANER 2-4 CNCRNT ANES PROC, QX - BILLING ADJUDICATOR SVC W/ MD MED DIRECTION
--- NOTE | 2025-03-20 14:39 | PM.ORPRC ---
Procedure Note Date of procedure: 03/20/25 Procedure: PREOPERATIVE DIAGNOSIS: 1. Right acute total knee arthroplasty infection POSTOPERATIVE DIAGNOSIS: 1. Right acute total knee arthroplasty infection PROCEDURE: 1. Right total knee arthroplasty revision (polyethylene exchange) 2. Right knee open major/extensive synovectomy 3. Right knee antibiotic bead creation and placement for acute TKA infection SURGEON: Joseph Deluna MD. EQUIPMENT SERVICE LEAD: DANIEL Ray - Of note, a skilled technical support assistant was critical for this case to aid in patient positioning, tissue retraction, limb manipulation/positioning, and closure. ANESTHESIA: Spinal anesthetic IMPLANTS: DePuy J&J all cemented TKA - Sigma components remain in place for the femur, tibia, and patella. The polyethylene was removed and exchanged for a new 12.5 mm polyethylene. TOURNIQUET: 67 minutes at 300 torr EBL: 150 mL SPECIMENS: Cultures (x4 - including the synovial fluid, retropatellar, suprapatellar, posterior notch) COMPLICATIONS: None evident INDICATIONS: The patient is a pleasant 59-year-old female who underwent a right TKA in 2017 (Dr. Tran). Following the surgery, she did very good. Unfortunately, she developed a spontaneous effusion approximately 2.5 weeks ago. She came to my clinic on 03/14/2025 wear and a right knee aspiration was performed and showed cloudy yellow colored fluid. This was sent for cell count, Gram stain, crystals, and cultures. The cell count returned [place] [address]106+ wbc's and 89% PMNs. Cultures remain negative as did the Gram stain. Crystals were negative. Intention for serum labs to be obtained encountered a snafu of paperwork issues and apparently the patient did not get labs. However, there was a strong suspicion for an acute infection given the aspiration findings and the patient's clinical picture. No systemic symptoms noted. Given these findings however, surgery was indicated for the above procedure including a planned Double DAIR technique. FINDINGS: Generalized purulence was encountered upon entering the knee capsule itself. There is no evidence of purulence in the subcutaneous layer. No sinus tract encountered. There was synovitis within the knee joint as well. Multiple synovial samples were obtained and sent for culture. Another sample of synovial fluid was also obtained for culture. The polyethylene showed slight yellowing to the post itself. There also was some gouging of the posterior medial polyethylene part that might suggest either osteophyte or possibly cement in the posterior recesses of the femur that may have articulated and rubbed this. Did not clearly see any obvious polyethylene fragments within the knee. No other grooving within the polyethylene. The patella showed a small shallow groove in the proximal pole subtly. DESCRIPTION OF PROCEDURE: Following a thorough discussion of risks, benefits, and alternatives consent was obtained and the right knee was marked. The patient was brought to the operating room and placed supine on the operating table. Induction of anesthesia was undertaken. Antibiotics were held until after cultures were obtained. 1 g tranexamic acid was administered within 1 hr of incision preoperatively. Proper time-out was performed identifying proper patient, site, procedure. The operative extremity was prepped and draped in the appropriate sterile fashion using ChloraPrep after the patient was positioned supine with all bony prominences well padded. A longitudinal, anterior, midline skin incision was made starting approximately 3cm proximal to the superior pole of the patella and advanced distal to the tibial tubercle opening the previous scar. A subvastus approach was utilized. A medial subperiosteal sleeve was created with knife, stern elevator and curved osteotome. The retropatellar fatpad was resected and the synovium in the suprapatellar pouch excised to visualize the anterior femoral cortex. The synovitis was visualized and multiple synovial samples were obtained for cultures as noted above. Further debridement of the retropatellar fat pad, suprapatellar pouch synovium, and lateral capsular tissue allowed us to mobilize the patella laterally to excise/remove the polyethylene component. The femur, tibia, and patella were all stable without evidence of loosening. There was purulence encountered upon entering the knee capsule. A thorough debridement with curette, rongeur, and scalpel was performed providing a major/extensive synovectomy in all aspects of the knee including anterior, inferior, superior, medial, lateral, and posterior. Following this, thorough irrigation normal saline was performed (3 L). A thorough scrub with Hibiclens brushes was then performed on all tissue and artificial surfaces. Another normal saline irrigation performed (3 L). Finally, the new polyethylene was opened and inserted without difficulty. A 3 minute Betadine soak was performed. Finally, normal saline irrigation performed or (3 later). At this point, the tourniquet was deflated hemostasis achieved. Antibiotic cement beads were then made on the back table utilizing standard bone cement mixed with 2.4 g of tobramycin. 16 cement beads on a string were placed in the gutters and the suprapatellar pouch. The capsule was then closed with running PDS suture. The subcutaneous layer was closed with running PDS and dressing applied. The patient was awoken from anesthesia after the tourniquet deflated and transferred the PACU in stable condition. Multiple skilled assistants were critical for this case to aid in patient positioning, tissue retraction, bone exposure, limb manipulation/positioning, patient safety, and closure. PLAN: 1. Weight bear as tolerated operative extremity. 2. Empiric antibiotics 3. Ice. 4. PT/OT consults for ambulation assistance/mobility education. 5. Social work consult for discharge planning. 6. DVT prophylaxis with at SCDs and [chemoprophylaxis] 7. PICC line placement with IV antibiotics anticipated x4 plus weeks then likely transition oral antibiotics. 8. Knee immobilizer at this time with no range of motion of the knee. 9. Anticipate being able to discharge from hospital when she is mobilizing safely and medically remains stable.
[2025-03-20] MEDS: HYDROmorphone 0.5 mg/0.5 ml inj IVP ×2 (19:23→21:02)
[2025-03-20] MEDS: CEFAZOLIN 2 GM in 0.9 % SODIUM CHLORIDE Mini-bag 100 ML IVPB (19:23)
[2025-03-20] MEDS: OXYCODONE 5 MG TABLET PO ×2 (19:24→23:01)
--- NOTE | 2025-03-20 19:38 | PC.NURSE ---
End of shift: patient a/o. VSS. on RA and Afebrile this shift tolerating a reg. diet. Patient voided 500cc. SL. Awaiting placement of PICC for IV antibiotics. Patient denies N/V/SOB or pain. Patient's Knee immobilizer in place. To be worn at all times.
--- NOTE | 2025-03-20 20:30 | CRLHL7_ITS ---
For Patients: As a result of the Century Cures Act, medical imaging exams and procedure reports are released immediately into your electronic medical record. You may view this report before your referring provider. If you have questions, please contact your health care provider. Indication: PICC placement Technique: Single view of the chest Comparison: Chest radiograph performed 08/09/2023 Findings/Impression: Right PICC terminates at the superior cavoatrial junction. Dictated by Radhames Funk MD @ 03/20/2025 9:20:47 PM (Electronically Signed)
[2025-03-20] MEDS: SENNOSIDES 1 TAB TABLET 2 TAB PO (21:02)
[2025-03-20] MEDS: ONDANSETRON 2 MG/ML inj 4 MG IVP (21:02)
--- NOTE | 2025-03-20 21:47 | PM.IMCN1 ---
Date of Consult Patient: [facility] Patient Consult date: 03/20/25 Requesting Physician: Orthopedics Primary Care Provider: Iwona Del Rio MD Consult Narrative Reason for consult: Medical management of comorbidities Narrative: Fanta Chand is a 59 year old female who presented to the hospital today for a R TKA revision/polyethylene exchange, synovectomy, antibiotic bead placement. She had a R TKA in 2017, developed a spontaneous R knee effusion 2-3 weeks ago and had this aspirated in the outpatient setting with Dr. Deluna last week. Cell counts notable for 11K WBCs, 89% PMNs, negative cultures and gram stain. No fevers or signs of systemic illness. History of DVT in 2017 after her knee replacement. Comorbidities include essential hypertension, metabolic syndrome, hyperlipidemia, moderate persistent asthma. PCP is Dr. Del Rio at [facility]. Review of Systems Status of ROS: Reports: 10 or more systems reviewed and unremarkable except as noted in History and below PFSH PFS Medical History (Updated 03/20/25 @ 22:49 by Nikkie Castrejon MD) Prediabetes ?R73.03 - Prediabetes (ICD-10) Hypertension ?I10 - Essential (primary) hypertension (ICD-10) Hyperlipidemia ?E78.5 - Hyperlipidemia, unspecified (ICD-10) Anxiety ?F41.9 - Anxiety disorder, unspecified (ICD-10) Left carpal tunnel syndrome ?G56.02 - Carpal tunnel syndrome, left upper limb (ICD-10) History of DVT (deep vein thrombosis) ?Z86.718 - Personal history of other venous thrombosis and embolism (ICD-10) KARINA (obstructive sleep apnea) ?G47.33 - Obstructive sleep apnea (adult) (pediatric) (ICD-10) Surgical History (Updated 03/20/25 @ 22:46 by Nikkie Castrejon MD) History of total left knee replacement (04/21/15) ?Z96.652 - Presence of left artificial knee joint (ICD-10) History of total right knee replacement (03/31/16) ?Z96.651 - Presence of right artificial knee joint (ICD-10) History of arthroscopy of left knee (11/25/16) ?Z98.890 - Other specified postprocedural states (ICD-10) History of arthroscopy of right knee (07/07/17) ?Z98.890 - Other specified postprocedural states (ICD-10) History of carpal tunnel surgery of right wrist (04/15/21) ?Z98.890 - Other specified postprocedural states (ICD-10) Social History What is your current living situation?: I presently have a place to live Problems where you live: no known problems Problems where you live details: none In the past 12 months, utilities in danger of being shut off: no In past 12 months, lack of transportation kept you from medical appts, meetings, work, or getting things needed for daily living: no In the past 12 mos, have been you worried that your food would run out before you had money to buy more?: never true In the past 12 mos, the food you bought just didn't last and you didn't have money to buy more?: never true Highest level of school completed/degree received: Master's degree Smoking Status: Never smoker Do you use any of these nicotine containing products: None Second hand tobacco smoke exposure: No How often do you have a drink containing alcohol: never How often do you have six or more drinks on one occasion: Never AUDIT-C Alcohol total score: 0 Non-prescribed substance use: denies use Caffeine: Yes (coffee daily) How often does anyone, including family, friends and others, physically hurt you: never How often does anyone, including family, friends and others, insult or talk down to you: never How often does anyone, including family, friends and others, threaten you with harm: never How often does anyone, including family, friends and others, scream or curse at you: never service: No Meds Home Medications and Allergies Home Medications ?Medication ?Instructions ?Recorded ?Confirmed ?Type amlodipine 10 mg tablet 10 mg PO DAILY 09/17/22 03/20/25 History hydrochlorothiazide 25 mg tablet 25 mg PO DAILY 09/17/22 03/20/25 History rosuvastatin 20 mg tablet 20 mg PO DAILY 09/17/22 03/20/25 History venlafaxine 75 mg capsule,extended 75 mg PO DAILY 09/17/22 03/20/25 History release 24 hr metformin 850 mg tablet 850 mg PO BIDWM 07/22/23 03/20/25 History Bacillus coagulans [Probiotic (B. PO 12/05/24 03/14/25 History coagulans)] cholecalciferol (vitamin D3) PO 12/05/24 03/14/25 History fish oil-dha-epa PO 12/05/24 03/14/25 History mometasone-formoterol HFA 200 2 puff inhalation BID 12/05/24 03/20/25 History mcg-5 mcg/actuation aerosol inhaler (Dulera) aspirin 81 mg tablet 81 mg PO DAILY 03/19/25 03/20/25 History benzonatate 100 mg capsule 100 mg PO 3XD PRN cough 03/20/25 03/20/25 History Held on 03/20/25. Instructions: Order Change fluticasone propionate 50 2 spray intranasal DAILY 03/20/25 03/20/25 History mcg/actuation nasal spray,suspension Allergies Allergy/AdvReac Type Severity Reaction Status Date / Time adhesive Allergy Verified 03/20/25 10:10 cephalexin Allergy Verified 03/20/25 10:10 codeine Allergy Vomiting Verified 03/20/25 10:10 lidocaine Allergy Fainting Verified 03/20/25 10:10 Penicillins Allergy Verified 03/20/25 10:10 Exam Narrative: Exam Narrative: GEN: Alert and oriented, nontoxic HEENT: Normal external ears, EOMIs bilaterally, no scleral icterus CV: RRR, No concerning murmurs R: LCTA bilaterally Skin: No concerning skin lesions or rashes on exposed skin Neuro: Nonfocal Psych: Appropriate Const: Vital Signs, click to edit/add: Vital Signs - 24 hr 03/20/25 10:20 03/20/25 11:55 03/20/25 12:00 Temperature 97.2 F L Pulse Rate 68 62 64 Respiratory Rate 16 16 14 Blood Pressure 143/82 H 161/88 H 157/89 H Pulse Oximetry 97 97 98 Oxygen Delivery Me thod Room Air Nasal Cannula Nasal Cannula Oxygen Flow Rate 3 3 03/20/25 14:34 03/20/25 14:40 03/20/25 14:45 Temperature 97.3 F L Pulse Rate 60 54 L 55 L Respiratory Rate 14 12 14 Blood Pressure 98/66 110/63 113/66 Pulse Oximetry 92 97 97 Oxygen Delivery Me thod Room Air Nasal Cannula Nasal Cannula Oxygen Flow Rate 3 3 03/20/25 14:50 03/20/25 14:55 03/20/25 15:00 Temperature 97.2 F L Pulse Rate 54 L 55 L 56 L Respiratory Rate 14 14 14 Blood Pressure 117/68 122/70 126/73 Pulse Oximetry 98 96 95 Oxygen Delivery Me thod Nasal Cannula Room Air Room Air Oxygen Flow Rate 2 03/20/25 15:05 03/20/25 15:10 03/20/25 15:15 Temperature 97.2 F L Pulse Rate 54 L 55 L 56 L Respiratory Rate 14 14 14 Blood Pressure 122/70 128/75 129/78 Pulse Oximetry 93 95 94 Oxygen Delivery Me thod Room Air Room Air Room Air Oxygen Flow Rate 03/20/25 15:15 03/20/25 15:30 03/20/25 15:45 Temperature 97.6 F 97.5 F L 97.6 F Pulse Rate 60 60 60 Respiratory Rate 16 16 16 Blood Pressure 122/74 130/74 127/82 Pulse Oximetry 90 91 90 Oxygen Delivery Me thod Room Air Room Air Room Air Oxygen Flow Rate 03/20/25 16:00 03/20/25 16:15 03/20/25 16:45 Temperature 97.6 F 97.6 F 97.6 F Pulse Rate 64 64 74 Respiratory Rate 16 16 16 Blood Pressure 137/77 133/75 136/83 Pulse Oximetry 92 92 92 Oxygen Delivery Me thod Room Air Room Air Room Air Oxygen Flow Rate 03/20/25 17:15 03/20/25 18:00 03/20/25 20:00 Temperature 97.6 F 97.6 F 96.8 F L Pulse Rate 74 75 82 Respiratory Rate 16 16 18 Blood Pressure 131/76 139/81 144/84 H Pulse Oximetry 92 92 92 Oxygen Delivery Me thod Room Air Room Air Room Air Oxygen Flow Rate Assessment and Plan Assessment and plan (1) Effusion, right knee: Problem comment: - with h/o R TKA - concern for infectious process - surgery 03/[address] Deluna, plan to return to OR on Tuesday, 03/25 - PICC line placement 03/20, daily IV Ceftriaxone Status: Acute (2) History of DVT (deep vein thrombosis): Problem comment: - given history, recommend anticoagulation - returning to OR 03/25, so will cover with Lovenox 30mg BID until the morning of 03/24 - postop 03/25, recommend oral DOAC Status: Acute (3) History of total right knee replacement: Problem comment: - 03/31/2016, Dr. Tran Status: Acute
[2025-03-20] MEDS: MOMETASONE FORMOTEROL 2 EACH IH (21:52)
[2025-03-20] MEDS: ENOXAPARIN 30 MG/0.3ML INJ SUBCUT (21:53)
[2025-03-20] MEDS: cefTRIAXone 1 GM in 0.9 % SODIUM CHLORIDE Mini-bag 100 ML IVPB (21:53)
[2025-03-21] MEDS: ACETAMINOPHEN 500 MG TABLET 1000 MG PO ×3 (01:55→13:42)
[2025-03-21 03:10] VITALS: BP 149/80; PULSE 85; RESP 16; TEMP 36.9; O2SAT 93
[2025-03-21] MEDS: OXYCODONE 5 MG TABLET PO ×3 (04:22→11:46)
[2025-03-21 07:00] VITALS: PULSE 81; RESP 18; O2SAT 93
[2025-03-21 07:17] LABS: Basophils Percent Auto 0.1 % (0.0-3.0); Hematocrit 38.5 % (33.0-51.0); Hemoglobin* 12.5 gm/dL (12.0-16.0); Immature Granulocytes Pct Auto 0.2 %; Mean Corpuscular HGB Conc 33 gm/dL (32-36); Mean Corpuscular Hemoglobin 30 pg (26-34); Mean Corpuscular Volume 93 fL (80-100); Monocytes Percent Auto 9.6 % (0.0-11.0); Neutrophils Percent Auto 80.1 % (42.0-72.0); Platelet Count* 280 K/uL (140-440); RDW Coefficient of Variation % 11.8 % (11.5-15.5); Red Blood Count 4.13 m/uL (4.00-5.20)
[2025-03-21 07:30] LABS: Slide Review Reflex No
[2025-03-21 07:38] VITALS: BP 167/87; PULSE 81; RESP 18; TEMP 36.7; O2SAT 93
[2025-03-21 07:41] LABS: Sodium* 135 mmol/L (135-149)
[2025-03-21 07:44] LABS: Blood Urea Nitrogen* 10 mg/dL (7-30); Creatinine* 0.6 mg/dL (0.5-1.5); Est. Creatinine Clearance* 61.74; Estimated Glomerular Filt Rate 102 ml/min
[2025-03-21] MEDS: SENNOSIDES 1 TAB TABLET 2 TAB PO (09:28)
[2025-03-21] MEDS: ENOXAPARIN 30 MG/0.3ML INJ SUBCUT (09:29)
[2025-03-21] MEDS: MOMETASONE FORMOTEROL 2 EACH IH (09:29)
[2025-03-21] MEDS: VENLAFAXINE ER 75 MG CAPSULE PO (09:29)
[2025-03-21 11:49] VITALS: BP 171/82; PULSE 82; RESP 16; TEMP 36.6; O2SAT 90
--- NOTE | 2025-03-21 13:34 | PM.ORPN ---
Subjective Subjective Date Seen: 03/21/25 Principal diagnosis: POD1 right knee extensive synovectomy, poly exchange, ABX beads Interval history: Patient reports doing well. No acute events over night. Remains in knee immobilizer. Pain managed with scheduled and PRN medications, ice. DVT prophylaxis: 30 mg twice a day enoxaparin due to history of pulmonary embolism, SCDs, walking. Denies fevers, chills, aches, N/V, CP, SOB/HE, or lightheadedness. She had a right upper extremity PICC line placed last night which is doing well. Ortho Exam Narrative Exam Narrative: -Patient appears comfortable; no apparent acute distress -Alert and oriented times 3 -knee immobilizer in place thus no examination of the wound/bandage and swelling observed -Bilateral calfs soft; no significant swelling, edema, tenderness, erythema, discoloration, warmth, or palpable cords -2+ DP/PT pulses, intact dermatomes and myotomes distally (5/5 strength) Const Vital Signs, click to edit/add: Vital Signs - 24 hr 03/20/25 14:34 03/20/25 14:40 03/20/25 14:45 Temperature 97.3 F L Pulse Rate 60 54 L 55 L Pulse Rate [Right Pulse Oximeter] Respiratory Rate 14 12 14 Blood Pressure 98/66 110/63 113/66 Blood Pressure [Left Arm] Pulse Oximetry 92 97 97 Oxygen Delivery Method Room Air Nasal Cannula Nasal Cannula Oxygen Flow Rate 3 3 03/20/25 14:50 03/20/25 14:55 03/20/25 15:00 Temperature 97.2 F L Pulse Rate 54 L 55 L 56 L Pulse Rate [Right Pulse Oximeter] Respiratory Rate 14 14 14 Blood Pressure 117/68 122/70 126/73 Blood Pressure [Left Arm] Pulse Oximetry 98 96 95 Oxygen Delivery Method Nasal Cannula Room Air Room Air Oxygen Flow Rate 2 03/20/25 15:05 03/20/25 15:10 03/20/25 15:15 Temperature 97.2 F L Pulse Rate 54 L 55 L 56 L Pulse Rate [Right Pulse Oximeter] Respiratory Rate 14 14 14 Blood Pressure 122/70 128/75 129/78 Blood Pressure [Left Arm] Pulse Oximetry 93 95 94 Oxygen Delivery Method Room Air Room Air Room Air Oxygen Flow Rate 03/20/25 15:15 03/20/25 15:30 03/20/25 15:45 Temperature 97.6 F 97.5 F L 97.6 F Pulse Rate 60 60 60 Pulse Rate [Right Pulse Oximeter] Respiratory Rate 16 16 16 Blood Pressure 122/74 130/74 127/82 Blood Pressure [Left Arm] Pulse Oximetry 90 91 90 Oxygen Delivery Method Room Air Room Air Room Air Oxygen Flow Rate 03/20/25 16:00 03/20/25 16:15 03/20/25 16:45 Temperature 97.6 F 97.6 F 97.6 F Pulse Rate 64 64 74 Pulse Rate [Right Pulse Oximeter] Respiratory Rate 16 16 16 Blood Pressure 137/77 133/75 136/83 Blood Pressure [Left Arm] Pulse Oximetry 92 92 92 Oxygen Delivery Method Room Air Room Air Room Air Oxygen Flow Rate 03/20/25 17:15 03/20/25 18:00 03/20/25 20:00 Temperature 97.6 F 97.6 F 96.8 F L Pulse Rate 74 75 82 Pulse Rate [Right Pulse Oximeter] Respiratory Rate 16 16 18 Blood Pressure 131/76 139/81 144/84 H Blood Pressure [Left Arm] Pulse Oximetry 92 92 92 Oxygen Delivery Method Room Air Room Air Room Air Oxygen Flow Rate 03/20/25 23:00 03/20/25 23:00 03/21/25 03:10 Temperature 97.5 F L 98.5 F Pulse Rate Pulse Rate [Right Pulse Oximeter] 83 85 Respiratory Rate 16 16 16 Blood Pressure Blood Pressure [Left Arm] 158/85 H 149/80 H Pulse Oximetry 92 91 93 Oxygen Delivery Method Room Air Room Air Room Air Oxygen Flow Rate 03/21/25 07:00 03/21/25 07:00 03/21/25 07:38 Temperature 98.0 F Pulse Rate Pulse Rate [Right Pulse Oximeter] 81 81 Respiratory Rate 18 18 18 Blood Pressure Blood Pressure [Left Arm] 167/87 H Pulse Oximetry 93 93 Oxygen Delivery Method Room Air Room Air Oxygen Flow Rate 03/21/25 11:49 Temperature 97.8 F Pulse Rate Pulse Rate [Right Pulse Oximeter] 82 Respiratory Rate 16 Blood Pressure Blood Pressure [Left Arm] 171/82 H Pulse Oximetry 90 Oxygen Delivery Method Room Air Oxygen Flow Rate Assessment and Plan Assessment and plan (1) Effusion, right knee: Problem details: - with h/o R TKA - concern for infectious process - surgery 03/[address] Deluna, plan to return to OR on Tuesday, 03/25 - PICC line placement 03/20, daily IV Ceftriaxone Status: Acute (2) History of DVT (deep vein thrombosis): Problem details: - given history (pulmonary embolism), recommend anticoagulation - returning to OR 03/25, so will cover with Lovenox 30mg BID until the morning of 03/24 - postop 03/25, recommend oral DOAC (likely Eliquis 5 mg b.i.d.) Status: Acute (3) History of total right knee replacement: Problem details: - 03/31/2016, Dr. Tran Status: Acute Plan - Continue antibiotics - PT/OT consult for education and assistance. - Social work consult for discharge planning - Prescribed analgesics as needed - DVT prophylaxis: Enoxaparin 30 mg twice daily, last dose morning of 03/24/2025, walking, and SCDs - Remain in knee immobilizer - Anticipation is for discharge to home with family/friends today [] if the patient remains medically stable, pain is controlled, and they are safe with mobilization.
[2025-03-21] MEDS: cefTRIAXone 1 GM in 0.9 % SODIUM CHLORIDE Mini-bag 100 ML IVPB (13:42)
--- NOTE | 2025-03-21 17:47 | PC.NURSE ---
Discharge-- Very pleasant and cooperative, alert and oriented patient was discharged to home via wheelchair with at roughly 1500 this evening. Immobilizer and AGUSTINA wraps covering surgical leg are C/D/I and CMS of foot is WNL. Right leg pedal pulses palpated normal and cap refill <3sec. LS CTA. She denied nausea and tolerated a regular diet without difficulty. Pt was up to BR and ambulated in hallway with SBA/ independent and walker and tolerated it well. Discharge education was provided including diagnosis info, symptoms to report, medications and follow up plan. All questions were answered. Pt was discharged with Picc in place to return for outpatient ABO tomorrow.
== END 2025-03-21 17:06 | disposition home or self-care (01) | DRG 302 ==
PROVIDERS: Admitting Provider Orthopaedic Surgery Sports Medicine; PCP Family Medicine; Visit Provider Orthopaedic Surgery Sports Medicine
PROC: 0SPC09Z Removal of Liner from Right Knee Joint, Open Approach (ICD-10-PCS; CPT 27447; principal; 2025-03-20 12:30)
DX: T84.53XA Infection and inflammatory reaction due to internal right knee prosthesis, initial encounter (principal); M65.161 Other infective (teno)synovitis, right knee; G89.18 Other acute postprocedural pain; I10 Essential (primary) hypertension; R73.03 Prediabetes; G47.33 Obstructive sleep apnea (adult) (pediatric); Z86.718 Personal history of other venous thrombosis and embolism; Z86.711 Personal history of pulmonary embolism; F41.9 Anxiety disorder, unspecified; Z79.01 Long term (current) use of anticoagulants; Z79.84 Long term (current) use of oral hypoglycemic drugs; Z79.82 Long term (current) use of aspirin; Z96.652 Presence of left artificial knee joint; Z96.651 Presence of right artificial knee joint; E78.5 Hyperlipidemia, unspecified
CPT/HCPCS: 01402; 36415; 36573; 64447; 64454; 73560; 76942; 82565; 84132; 84295; 84520; 85025; 87040; 87070; 87075; 87205; 97116; 97161; 97165; 97530; 97535; A9270; C1751; C1776; J0665; J0690; J0696; J1100; J1171; J1650; J2250; J2405; J2704; J3010; J7120

== ENCOUNTER 2025-03-24 14:51 | Emergency (ER) | payer BC, SELFPAY ==
[2025-03-24 14:53] VITALS: BP 110/79; PULSE 98; RESP 18; TEMP 36.8; O2SAT 94; BMI 34.0
--- OUTSIDE RECORDS SUMMARY | 2025-03-24 14:53 | XMS_ITS | Clinical Summary ---
Author Organization [facility] Address [address] [place] [id number] Care Team Providers Care Cdl Truck Driver Name Role Phone Eliane, Iwona Padilla MD Primary Care Provider Allergies Active Allergy Reactions Criticality Noted Date Comments Adhesive Rash,Contact Dermatitis 09/08/2020 Bupivacaine Dizziness 04/28/2021 Cephalexin Other - Describe In Comment Field 06/14/2015 rash Codeine 09/25/2007 emesis Lidocaine Dizziness 04/28/2021 Penicillins 06/30/2007 Unlisted Allergen (Include Detail In Comments) GI Upset Low 04/28/2021 Milk Medications multivitamin (MVI) tabletIndications: Hypertension take 1 tablet by oral route once daily with food 0 9 Active aspirin enteric coated 81 mg tablet take 1 tablet (81 mg) by oral route once daily 0 9 Active Lactobacillus acidophilus (PROBIOTIC) 10 billion cell cap Take 1 Capsule by mouth once daily. 0 6 Active docusate (DULCOLAX STOOL SOFTENER, DSS,) 100 mg capsule Take 1 capsule by mouth 2 times daily. 0 6 Active cholecalciferol (VITAMIN D) 1,000 unit tabletIndications: Healthcare maintenance Take 1 tablet by mouth once daily. 0 7 Active medication order composerIndication s:Healthcare maintenance Juice Plus Orchard Blend and Garden Blend Supplement. Take 2 tablets of each daily. 0 7 Active magnesium gluconate (Mag-G) 500 mg Take 500 mg by mouth once daily. 1 Active zinc 50 mg tablet Take 50 mg by mouth once daily. 1 Active omega 8-eru-bnq-fish oil 1,000 mg (250 mg-750 mg)/5 mL liqd Take by mouth. Active amLODIPine (NORVASC) 10 mg tabletIndications: Hypertension Take 1 Tablet (10 mg) by mouth once daily. 100 Tablet 3 4 Active hydroCHLOROthiazid e 25 mg tabletIndications: Hypertension Take 1 Tablet (25 mg) by mouth once daily. 100 Tablet 3 4 Active metFORMIN (GLUCOPHAGE) 850 mg tabletIndications: Prediabetes Take 1 Tablet (850 mg) by mouth two times daily with meals. 200 Tablet 3 4 Active rosuvastatin (CRESTOR) 20 mg tabletIndications: Hyperlipidemia, unspecified hyperlipidemia type Take 1 Tablet (20 mg) by mouth once daily. 100 Tablet 3 4 Active venlafaxine (EFFEXOR XR) 75 mg cp24 Extended-Release capsuleIndications :Menopausal symptoms Take 1 Capsule (75 mg) by mouth once daily with a meal. 100 Capsule 3 4 Active mometasone-formote rol (DULERA) 200-5 mcg/actuation inhalerIndications :Chronic cough Inhale 2 Puffs by mouth two times daily. 13 g 11 5 Active benzonatate (Tessalon Perles) 100 mg capsuleIndications :Chronic cough Take 1 Capsule (100 mg) by mouth 3 times daily if needed for Cough. 30 Capsule 2 5 Active inhalational spacing deviceIndications: Moderate asthma with exacerbation, unspecified whether persistent (HC) For home use. 1 Each 5 Active fluticasone (50 mcg per actuation) nasal solution (FLONASE)Indicatio ns:Chronic rhinosinusitis with multiple nasal polyps Inhale 2 Sprays in both nostrils once daily. 16 g 11 5 Active fluticasone (50 mcg per actuation) nasal solution (FLONASE)Indicatio ns:Postnasal drip Inhale 2 Sprays in both nostrils once daily. 16 g 4 5 025 Discontin ued(*Cassidy ent states no longer taking) Active Problems Problem Noted Date Diagnosed Date Routine adult health maintenance 04/28/2018 Overview (04/28/2018): Colonoscopy 04/2018 normal, repeat in 10 years KARINA 07/12/2015 AHI-11, supine REM 35 07/24/2015 Status post total left knee replacement 04/25/20 15 Carpal tunnel syndrome on both sides 10/18/2014 Hypertension 12/13/2011 DJD (degenerative joint disease) of knee 012 Allergic rhinitis, cause unspecified 07/17/2007 Resolved Problems Problem Noted Date Diagnosed Date Resolved Date Anticoagulation monitoring, INR range 2-3 07/06/2017 08/08/2017 Anticoagulation monitoring, INR range 2-3 12/06/2016 03/15/2017 Pulmonary embolism, bilateral 12/03/2016 04/01/2021 Overview (04/01/2021): While on hormone replacement therapy Anticoagulation monitoring, special range 1.8 to 2.5 04/25/2015 03/15/2017 Allergic rhinitis, cause unspecified 07/17/2007 04/25/2009 Encounters Date Type Department Care Team Description 03/20/2025 Orders Only [facility] Scanner 1 scan: (1-Ord) [facility], CHEST PICC PLACEMENT CONF, 03/20/2025 03/20/2025 Telephone [facility] [address] [place] [address] Iwona Del Rio MD Results 03/20/2025 Telephone [facility] [address] [place] [address] Iwona Del Rio MD requesting lab results 03/19/2025 1:40 PM CDT [place] [facility] [address] [place] [address] Lizzy Reece MD Pre-Op Exam (DOS 03/20/25) 03/19/2025 Travel 03/18/2025 3:15 PM CDT Orders Only [facility] [address] [place] [address] Lab, [facility] 03/18/2025 Travel 03/13/2025 11:15 AM CDT Telemedicine [facility] [address] [facility] [address] [facility] [address] [place] [address] Oseas Moore DO 03/12/2025 Travel 02/12/2025 4:00 PM CDT Office Visit [facility] [address] [place] [address] Maribel Kline MD Follow Up (Follow up sinus surgery history of nasal polyps ) 02/12/2025 Travel 01/14/2025 10:30 AM CDT Orders Only [facility] [address] [facility] [address] [place] [address] Lab 01/14/2025 9:15 AM CDT Office Visit [facility] [address] [place] [address] Oseas Moore DO Consult (Cough/ABN PFT) 01/13/2025 Travel 12/25/2024 9:40 AM CDT Office Visit [facility] [address] [place] [address] Iwona Del Rio MD Follow Up (Cough has gotten better but not gone/) 12/25/2024 Travel from Last 3 Months Immunizations Immunization Administration Dates Next Due COVID-19 vaccine (Moderna 100mcg/0.5mL) PF MDV 08/14/2021,12/05/2020,11/07/2020 INFLUENZA, IIV3 PF (AGE >= 6 MO) 07/06/2024 Influenza RIV4 (Age 18+ Year s) PRESERV FREE 06/05/2023 Influenza, IIV3 (Age >=3 years) 06/11/2018,07/06,07/13/2003 Influenza, IIV4 06/05/2023,,06/17/2020,2018,06/11/2018,07/05/2017,07/06/2016,1 ,07/13/2003 Influenza,CCIIV4 PRESERV FREE 06/09/2019 Pneumococcal Conj 20-valent (Prevnar 20) 10/09/2024 Tdap 2016,09/25/2007 Zoster (Shingrix-RZV, recombinant) 11/29/2018, Family History Medical History Relation Name Comments Heart failure Brother Diabetes Father Heart Disease Father Cancer-breast Maternal Aunt Diagnosed in her 40's Cancer-ovarian No Family History Relation Name Status Comments Brother Father Maternal Aunt Social History Tobacco Use Types Packs/Day Years Used Date Smoking Tobacco: Never Smokeless Tobacco: Never Tobacco Cessation:Counseling Given: No Alcohol Use Standard Drinks/Week Comments No 0 (1 standard drink = 0.6 oz pur e alcohol) PHQ-2 Answer Date Recorded PHQ-2 TOTAL SCORE 1 11/18/2023 Social Connections Answer Date Recorded Do you often feel lonely or isolated from those around you? 0 03/19/2025 Financial Resource Strain Answer Date R ecorded Difficulty of Paying Living Expenses 2 03/19/2025 Difficulty of Paying Living Expenses 1 03/19/2025 Food Insecurity Answer Date Recorded Do you worry your food will run out before you are able to buy more? 1 03/19/2025 Transportation Needs Answer Date Record ed Does lack of transportation keep you from medica l appointments? 1 03/19/2025 Does lack of transportation keep you from work, meetings or getting things that you need? 1 03/19/2025 Housing Stability Answer Date Recorded What is your housing situation today? 1 03/19/2025 Interpersonal Safety Answer Date Record ed Are you being hit, kicked, p ushed or yelled at (see row info)? No 04/19/2024 Interpersonal Safety Abuse 12 - 18 Not on file 04/19/2024 Interpersonal Safety Ambulatory Vulnerability No t on file 04/19/2024 Utilities Answer Date Recorded Do you have trouble paying f or utilities (for example, heat, electricity, water, phone)? 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 file Not on file Not on file Obstetrics History Para Term AB IAB SAB Ectopic Multiple Livin g Live Births 4 2 2 0 2 0 2 0 0 2 Date Outcome GA Total Labor Labor/2nd/3rd Weight Sex Type Anes PTL Riana A1 A5 Name Clin Term Term SAB SAB Last Filed Vital Signs Vital Sign Reading Time Taken Comments Blood Pressure 143/70 03/19/2025 1:48 PM CDT Pulse 75 03/19/2025 1:48 PM CDT Temperature 36.7 C (98 F) 03/19/2025 1:48 PM CDT Respiratory Rate 16 01/14/2025 9:19 AM CDT Oxygen Saturation 96% 03/19/2025 1:48 PM CDT Inhaled Oxygen Concentration - - Weight 105.1 kg (231 lb 9.6 oz) 03/19/2025 1:48 PM CDT Height 171.7 cm (5' 7.6) 03/19/2025 1:48 PM CDT Body Mass Index 35.63 03/19/2025 1:48 PM CDT Plan of Treatment Health Maintenance Due Date Last Done Comments RSV vaccine for adults or (1 - Risk 60-74 years 1-dose series) 2023 Depression screening for age 12+ 11/18/2024 11/18/2023, 08/27/2022, 08/25/2022, Additional history exists Mammogram for age 45-75 04/02/2025 04/02/20, 10/06/2022, 09/08/2020, Additional history exists BMI (ht and wt on same day) for age 18+ 03/19/2026 03/19/2025, 01/14/2025, 05/17/2024, Additional history exists Pap test for age 21-65 03/25/2026 , 03/25/2021, 03/20/2018, Additional history exists Tetanus booster 2026 2016, 09/25/2007 Colonoscopy through age 75 04/28/202804/28, 04/28/2018, 04/28/2018 Lipids for age 45-75 05/17/2029 05/17/2024, 08/27/2022, 03/25/2021, Additional history exists Tdap Completed 2016, 09/25/2007 Zoster (shingles) series for age 50+ Completed 11/29/2018, 06/29/2018 HIV for age 15-65 Completed 08/27/2022 Hepatitis C screening for age 18-79 Completed 08/27/2022 COVID-19 vaccine series Completed 07/06/20, 09/29/2023, 06/16/2022, Additional history exists Influenza Vaccine Completed 07/06/2024, , 06/05/2023, Additional history exists Pneumococcal series for age 50+ Completed 10/09/2024 Hepatitis B series for 19+ Aged Out N o longer eligible based on patient's age to complete this topic Medical Devices Implanted Type Area Molded Goods Controls Operator Device Identifier Shelf Expiration Date Model / Serial / Lot Stent Ent Mini Steroid-Releas ing Propel Bioabsorb - [id number] Implanted:Qty: 1 on 03/31/2023 by Maribel Kline MD at [facility] Left: Nose [employer] 06/11/2023 [id number] / / [id number] Stent Ent Mini Steroid-Releas ing Propel Bioabsorb - [id number] Implanted:Qty: 1 on 03/31/2023 by Maribel Kline MD at [facility] Right: Nose [employer] 05/04/2024 [id number] / / [id number] Stent Sinus 8mm Propel Contour Bioabsorb - [id number] Implanted:Qty: 1 on 03/31/2023 by Maribel Kline MD at [facility] Left: Nose [employer] 04/07/2024 [id number] / / [id number] Procedures Procedure Name Priority Date/Time Associated Diagnosis Comments SCAN-RADIOLOGY REPORT 03/20/2025 12:00 AM CDT HEMOGLOBIN A1C MONITORING (POCT) STAT 03/19/2025 2:29 PM CDT Pre-op exam POTASSIUM STAT 03/19/2025 2:29 PM CDT Pre-op exam DOG DANDER COMPONENT PANEL (QUEST REFLEX ONLY) Routine 01/14/2025 10:18 AM CDT CAT DANDER COMPONENT PANEL (QUEST REFLEX ONLY) Routine 01/14/2025 10:18 AM CDT RESPIRATORY DISEASE ALLERGY PROFILE Routine 01/14/2025 10:18 AM CDT Nasal polyps Chronic rhinosinusitis with multiple nasal polyps ADULT FOOD ALLERGY PROFILE Routine 01/14/2025 10:18 AM CDT Nasal polyps Chronic rhinosinusitis with multiple nasal polyps SCAN-PULMONARY FUNCTION TEST 01/14/2025 12:00 AM CDT LIPID PANEL W REFLEX MEASURED LDL Routine 05/17/2024 3:49 PM CDT Hyperlipidemia, unspecified hyperlipidemia type XR MAMMO TIMOTEO BILAT SCREEN Routine 04/02/2024 3:39 PM CDT Visit for screening mammogram ANTI HIV 1/2 Routine 08/27/2022 9:49 AM DENIER CONTROL OPERATOR Screening for HIV (human immunodeficiency virus) ANTI HCV Routine 08/27/2022 9:49 AM DENIER CONTROL OPERATOR Need for hepatitis C screening test PHYSICAL DAMAGE APPRAISER THIN PREP PAP SCREEN IMAGED Routine 03/25/2021 4:35 PM CDT Screening for cervical cancer COLONOSCOPY 04/28/2018 9:35 AM CDT from Last 3 Months or Most Recently Relevant to Health Maintenance Results * SCAN-RADIOLOGY REPORT (03/20/2025 12:00 AM CDT) Anatomical Region Laterality Modality Other us Scanner OTHER Final Result * POTASSIUM (03/19/2025 2:29 PM CDT) POTASSIUM 4.3 3.5 - 5.1 mmol/L 03/19/2025 10:46 PM CDT [facility] Blood BLOOD SPECIMEN / Unknown Non-Lab Venipuncture / Unknown 03/19/2025 2:29 PM CDT 03/19/2025 2:29 PM CDT us Lizzy Reece MD CHEMISTRY Final Result Performing Organization Address City/[facility]/ZIP Co de Phone Number [facility] [address] [place] [address], [place] * HEMOGLOBIN A1C MONITORING (POCT) (03/19/2025 2:29 PM CDT) [facility] HEMOGLOBIN A1C MONITORING (POCT) 5.7 <=6.4 % 03/19/2025 2:49 PM CDT [facility] Blood BLOOD SPECIMEN / Unknown Non-Lab Venipuncture / Unknown 03/19/2025 2:29 PM CDT 03/19/2025 2:29 PM CDT Narrative [facility] - 03/19/2025 2:49 PM CDT (<=6.9%) Indicates good control (7.0% to 7.9%) Indicates fair control (>=8.0%) Indicates poor control NOTE: These thresholds are guidelines and individual targets may vary. Falsely low levels may be seen with: Recent Transfusion, Recent Significant Blood Loss, Hemolytic Diseases, or Falsely elevated levels may be seen with: Untreated Anemias, Splenectomy us Lizzy Reece MD CHEMISTRY Final Result Performing Organization Address [facility]/ZIP Co de Phone Number [facility] [address] [place] [address], [place] * DOG DANDER COMPONENT PANEL (QUEST REFLEX ONLY) (01/14/2025 10:18 AM CDT) CAN F 1 (E101) IGE <0.10 <0.10 kU/L [facility] CAN F 2 (E102) IGE <0.10 <0.10 kU/L [facility] CAN F 3 (E221) IGE <0.10 <0.10 kU/L [facility] CAN F 4 (E229) IGE <0.10 <0.10 kU/L [facility] CAN F 5 (E226) IGE <0.10 <0.10 kU/L [facility] CAN F 6 (E230) IGE <0.10 <0.10 kU/L [facility] Comment: Component testing for samples with positive extract results may help to rule out cross-reactivity and confirm that allergy is present. The more components a patient is sensitized to, the higher the likelihood of a reaction when exposed to dogs. Sensitization to Can f 5 only may indicate that the patient can tolerate female dogs. 01/14/2025 10:1 8 AM CDT 01/14/2025 10:19 AM CDT Oseas Moore DO LABORATORY Final Resu lt [facility] [address] [place] [address], [facility] [address] * (ABNORMAL) CAT DANDER COMPONENT PANEL (QUEST REFLEX ONLY) (01/14/2025 10:18 AM CDT) FEL D 1 (E94) IGE 1.21(H) <0.10 kU/L [facility] FEL D 2 (E220) IGE <0.10 <0.10 kU/L [facility] FEL D 4 (E228) IGE <0.10 <0.10 kU/L [facility] FEL D 7 (E231) IGE <0.10 <0.10 kU/L [facility] Comment: Component testing for samples with positive extract results may help to rule out cross-reactivity and confirm that allergy is present. The more components a patient is sensitized to, the higher the likelihood of a reaction when exposed to cats. 01/14/2025 10:1 8 AM CDT 01/14/2025 10:19 AM CDT us Oseas Moore DO LABORATORY Final Resu lt [facility] [address] [place] [address], [facility] [address] [place] [address] * ADULT FOOD ALLERGY PROFILE (01/14/2025 10:18 AM CDT) EGG WHITE (F1) IGE <0.10 kU/L [facility] EGG WHITE (F1) IGE CLASS 0 [facility] PEANUT (F13) IGE <0.10 kU/L [facility] PEANUT (F13) IGE CLASS 0 [facility] WHEAT (F4) IGE <0.10 kU/L [facility] WHEAT (F4) IGE CLASS 0 [facility] WALNUT (F256) IGE <0.10 kU/L [facility] WALNUT (F256) IGE CLASS 0 [facility] CODFISH (F3) IGE <0.10 kU/L [facility] CODFISH (F3) IGE CLASS 0 [facility] COW'S MILK (F2) IGE <0.10 kU/L [facility] COW'S MILK (F2) IGE CLASS 0 [facility] SOYBEAN (F14) IGE <0.10 kU/L [facility] SOYBEAN (F14) IGE CLASS 0 [facility] SHRIMP (F24) IGE <0.10 kU/L [facility] SHRIMP (F24) IGE CLASS 0 [facility] SCALLOP (F338) IGE <0.10 kU/L [facility] SCALLOP (F338) IGE CLASS 0 [facility] SESAME SEED (F10) IGE <0.10 kU/L [facility] SESAME SEED (F10) IGE CLASS 0 [facility] HAZELNUT (F17) IGE <0.10 kU/L [facility] HAZELNUT (F17) IGE CLASS 0 [facility] CASHEW NUT (F202) IGE <0.10 kU/L [facility] CASHEW NUT (F202) IGE CLASS 0 [facility] ALMOND (F20) IGE <0.10 kU/L [facility] ALMOND (F20) IGE CLASS 0 [facility] SALMON (F41) IGE <0.10 kU/L [facility] SALMON (F41) IGE CLASS 0 [facility] TUNA (F40) IGE <0.10 kU/L [facility] TUNA (F40) IGE CLASS 0 [facility] BRAZIL NUT (F18) IGE <0.10 kU/L [facility] BRAZIL NUT (F18) IGE CLASS 0 [facility] MACADAMIA NUT (RF345) IGE <0.10 kU/L [facility] MACADAMIA NUT (RF345) IGE CLASS 0 [facility] INTERPRETATION [facility] Comment: Specific Level of Allergen IGE Class kU/L Specific IGE Antibody ----- --------- 0 <0.10 Absent/Undetectable 0/1 0.10-0.34 Very Low Level 1 0.35-0.69 Low Level 2 0.70-3.49 Moderate Level 3 3.50-17.4 High Level 4 17.5-49.9 Very High Level 5 50-100 Very High Level 6 >100 Very High Level The clinical relevance of allergen results of 0.10-0.34 kU/L are undetermined and intended for specialist use. Allergens denoted with a include results using one or more analyte specific reagents. In those cases, the test was developed and its analytical performance characteristics have been determined by [employer]. It has not been cleared or approved by the U.S. Food and Drug Administration. This assay has been validated pursuant to the CLIA regulations and is used for clinical purposes. Blood BLOOD SPECIMEN / Unknown 01/14/2025 10:18 AM CDT 01/14/2025 10:19 AM CDT Oseas Moore DO SEND OUTS Final Resu lt [facility] [address] [place] [address], [facility] [address] [place] [address] * (ABNORMAL) RESPIRATORY DISEASE ALLERGY PROFILE (01/14/2025 10:18 AM CDT) Pathologist [facility] DERMATOPHAGOIDES PTERONYSSINUS (D1) IGE <0.10 kU/L [facility] DERMATOPHAGOIDES PTERONYSSINUS (D1) IGE CLASS 0 [facility] DERMATOPHAGOIDES FARINAE (D2) IGE <0.10 kU/L [facility] DERMATOPHAGOIDES FARINAE (D2) IGE CLASS 0 [facility] PENICILLIUM NOTATUM (M1) IGE <0.10 kU/L [facility] PENICILLIUM NOTATUM (M1) IGE CLASS 0 [facility] CLADOSPORIUM HERBARUM (M2) IGE <0.10 kU/L [facility] CLADOSPORIUM HERBARUM (M2) IGE CLASS 0 [facility] ASPERGILLUS FUMIGATUS (M3) IGE <0.10 kU/L [facility] ASPERGILLUS FUMIGATUS (M3) IGE CLASS 0 [facility] ALTERNARIA ALTERNATA (M6) IGE <0.10 kU/L [facility] ALTERNARIA ALTERNATA (M6) IGE CLASS 0 [facility] CAT DANDER (E1) IGE 1.63(H) kU/L [facility] CAT DANDER (E1) IGE CLASS 2 [facility] DOG DANDER (E5) IGE 0.14(H) kU/L [facility] DOG DANDER (E5) IGE CLASS 0/1 [facility] COCKROACH (I6) IGE <0.10 kU/L [facility] COCKROACH (I6) IGE CLASS 0 [facility] MAPLE (BOX ELDER) (T1) IGE <0.10 kU/L [facility] MAPLE (BOX ELDER) (T1) IGE CLASS 0 [facility] BIRCH (T3) IGE <0.10 kU/L [facility] BIRCH (T3) IGE CLASS 0 [facility] MOUNTAIN CEDAR (T6) IGE <0.10 kU/L [facility] MOUNTAIN CEDAR (T6) IGE CLASS 0 [facility] COTTONWOOD (T14) IGE <0.10 kU/L [facility] COTTONWOOD (T14) IGE CLASS 0 [facility] WHITE ELIGIO (T15) IGE <0.10 kU/L [facility] WHITE ELIGIO (T15) IGE CLASS 0 [facility] OAK (T7) IGE <0.10 kU/L [facility] OAK (T7) IGE CLASS 0 [facility] ELM (T8) IGE <0.10 kU/L [facility] ELM (T8) IGE CLASS 0 [facility] WHITE MULBERRY (T70) IGE <0.10 kU/L [facility] WHITE MULBERRY (T70) IGECLASS 0 [facility] BERMUDA GRASS (G2) IGE <0.10 kU/L [facility] BERMUDA GRASS (G2) IGE CLASS 0 [facility] VICK GRASS (G6) IGE <0.10 kU/L [facility] VICK GRASS (G6) IGE CLASS 0 [facility] COMMON RAGWEED (SHORT) (W1) IGE <0.10 kU/L [facility] COMMON RAGWEED (SHORT) (W1) IGE CLASS 0 [facility] SENEGALESE THISTLE (W11) IGE <0.10 kU/L [facility] SENEGALESE THISTLE (W11) IGE CLASS 0 [facility] ROUGH IRELAND ELDER (W16) IGE <0.10 kU/L [facility] ROUGH IRELAND ELDER (W16) IGE CLASS 0 [facility] NETTLE (W20) IGE <0.10 kU/L [facility] NETTLE (W20) IGE CLASS 0 [facility] MOUSE URINE PROTEINS (E72) IGE <0.10 kU/L [facility] MOUSE URINE PROTEINS (E72) IGE CLASS 0 [facility] IMMUNOGLOBULIN E 19 <PM=204 kU/L [facility] Blood BLOOD SPECIMEN / Unknown 01/14/2025 10:18 AM CDT 01/14/2025 10:19 AM CDT Oseas Moore DO SEND OUTS Final Resu lt [facility] [address] [place] [address], [facility] [address] [place] [address] * SCAN-PULMONARY FUNCTION TEST (01/14/2025 12:00 AM CDT) us Scanner OTHER Final Result * LIPID PANEL W REFLEX MEASURED LDL (05/17/2024 3:49 PM CDT) CHOLESTEROL,TOTAL 112 100 - 199 mg/dL 05/17/2024 11:11 PM CDT [facility] Comment: Cholesterol, Total Reference Ranges Desirable <200 mg/dL Borderline 200-239 mg/dL High >=240 mg/dL TRIGLYCERIDES 114 <150 mg/dL 05/17/2024 11:11 PM CDT [facility] HDL CHOLESTEROL 52 >40 mg/dL 11:11 PM CDT [facility] NON-HDL CHOLESTEROL 60 <145 mg/dl 05/17/2024 11:11 PM CDT [facility] CHOL/HDL RATIO 2.15 <4.50 05/17/2024 11:11 PM CDT [facility] LDL CHOLESTEROL 37 <=130 mg/dL 05/17/2024 11:11 PM CDT [facility] VLDL CHOLESTEROL 23 <=30 mg/dL 05/17/2024 11:11 PM CDT [facility] PROVIDER ORDERED STATUS RANDOM 05/17/2024 11:11 PM CDT [facility] Blood BLOOD SPECIMEN / Unknown Venipuncture / Unknown 05/17/2024 3:49 PM CDT 05/17/2024 3:50 PM CDT us Tomasa Gallardo MD CHEMISTRY Final Resul t [facility] [address] [place] [address], [place] * XR MAMMO TIMOTEO BILAT SCREEN (04/02/2024 3:39 PM CDT) Anatomical Region Laterality Modality BREASTS, Breast Left, Breast Right Bilateral Mammography Impressions 04/03/2024 4:13 PM CDT There is no radiographic evidence for malignancy. Recommend annual mammograms. MAMMOGRAM ASSESSMENT: ACR 1 Negative PATIENTS: You will also receive a letter with your examination results in an easy to read format. If you have questions about your results, please contact your referring provider. Narrative 04/03/2024 4:13 PM CDT For Patients: As a result of the 21st Century Cures Act, medical imaging exams and procedure reports are released immediately into your electronic medical record. You may view this report before your referring provider. If you have questions, please contact your health care provider. XR MAMMO TIMOTEO BILAT SCREEN [[id number]] CLINICAL HISTORY: This is an asymptomatic 58 y.o. patient. INDICATION FOR EXAM: Mammogram Screening. TECHNIQUE: CC & MLO views were obtained. This study was evaluated with the assistance of Computer-Aided Detection. Breast Tomosynthesis was used in interpretation. COMPARISON FILM: Yes 10/06/22 [employer] [facility] 09/08/20 [facility] FINDINGS: There are scattered areas of fibroglandular density. There are no dominant masses, suspicious micro calcifications or areas of architectural distortion. Iwona Del Rio MD MAMMO Final R esult * ANTI HCV (08/27/2022 9:49 AM DENIER CONTROL OPERATOR) Pathologist [facility] HEPATITIS C ANTIBODY Non-React new Non-React new 08/28/2022 10:40 AM DENIER CONTROL OPERATOR [facility] Comment:Antibodies to HCV no t detected; does not exclude the possibility of exposure to HCV. Blood BLOOD SPECIMEN / Unknown Venipuncture / Unknown 08/27/2022 9:49 AM DENIER CONTROL OPERATOR 08/27/2022 9:50 AM DENIER CONTROL OPERATOR Tomasa Gallardo MD SEND OUTS Final Resul t Performing Organization Address City/[facility]/ZIP Co de Phone Number [facility] [address] [place] [address], [place] * ANTI HIV 1/2 [01513.0] (08/27/2022 9:49 AM DENIER CONTROL OPERATOR) [facility] HIV-1/HIV-2 ANTIBODY Non-Reacti ve Non-Reacti ve 08/28/2022 10:35 AM DENIER CONTROL OPERATOR [facility] Comment:HIV-1 p24 and HIV-1/ HIV-2 Ab not detected. Blood BLOOD SPECIMEN / Unknown Venipuncture / Unknown 08/27/2022 9:49 AM DENIER CONTROL OPERATOR 08/27/2022 9:50 AM DENIER CONTROL OPERATOR Tomasa Glalardo MD SEND OUTS Final Resul t [facility] [employer] [address] [place] [address], [place] * PHYSICAL DAMAGE APPRAISER THIN PREP PAP SCREEN IMAGED [[id number]] (03/25/2021 4:35 PM CDT) [facility] Case Report Gynecologic Cytology Report Case: [id number] Authorizing Provider: Jazz Galan MD Collected: 03/25/2021 1575 Ordering Location: [facility] Received: 03/25/2021 1644 Clinic First Screen: Beto Brandon Pathologist: Cindy Garcia MD Specimen: PHYSICAL DAMAGE APPRAISER ThinPrep Vial Screening, Cervical 04/06/2021 12:21 PM CDT [facility] INTERPRETATION/ RESULT NEGATIVE FOR INTRAEPITHELIAL LESION OR MALIGNANCY (NIL) (none) 04/06/2021 12:21 PM CDT [facility] at 1221 CDT OTHER NON-NEOPLASTIC FINDING(S) Reactive cellular changes associated with inflammation/repa ir Parakeratosis 04/06/2021 12:21 PM CDT [facility] SPECIMEN ADEQUACY Satisfactory for evaluation Endocervical component present 04/06/2021 12:21 PM CDT [facility] HPV REQUEST HPV and PAP 04/06/2021 12:21 PM CDT [facility] Date of LMP N/A 04/06/2021 12:21 PM CDT [facility] Last Pap Date 03/20/18 04/06/2021 12:21 PM CDT [facility] Last Pap Result NIL 12:21 PM CDT [facility] Abnormal Pap or [place] Bx in last 5 years No 04/06/2021 12:21 PM CDT [facility] Menstrual Status Postmenopausal 04/06/2021 12:21 PM CDT [facility] [place] Bx Done Today No 04/06/2021 12:21 PM CDT [facility] Additional Information None given 04/06/2021 12:21 PM CDT [facility] Comment: Cytology is screened at [facility], Central Laboratory - [address], [place] [address] and [facility] - [address] [place] [address], [place] [address] and [facility] - [address] [place] [address] Interpreted at [facility] - [address], [place] [address] Automated Review Successful 04/06/2021 12:21 PM CDT [facility] Comment:Specimen processed s uccessfully by automated optic fibre drawer device, ThinPrep Imaging System, [employer] ANCILLARY TESTING PHYSICAL DAMAGE APPRAISER HPV Ordered, Please see separate report 04/06/2021 12:21 PM CDT [facility] Note The pap test is a screening technique, not a diagnostic procedure. It is used primarily to screen for squamous cancers and precursor lesions. Published studies have shown that it is subject to both false negative and false positive results. The pap test should not be used as the sole means to diagnose or exclude pre-malignant and malignant lesions. 04/06/2021 12:21 PM CDT [facility] Other (Cervical) Non-Blood / Unknown 03/25/2021 4:35 PM CDT 03/25/2021 4:44 PM CDT us Jazz Galan MD PATHOLOGY/CYTOLOGY Final Resu lt [facility] [address] [place] [address], [place] * COLONOSCOPY (04/28/2018 9:35 AM CDT) 04/28/2018 9:35 AM CDT Narrative Transcriptions Troy Law MD - 04/28/2018 10:49 AM CDT Patient Name: Fanta Chand Procedure Date: 04/28/2018 Gender: Female Date of : 1965 Admit Type: Outpatient Procedure: Colonoscopy Proceduralist: Troy Law MD , Latisha Sue (Nurse) Indications/Pre-Op Diagnosis: Screening for colorectal malignant neoplasm, This is the patient's first colonoscopy Medications: Fentanyl 100 micrograms IV, Midazolam 4 mgIV, The level of sedation administered wasmoderate Procedure Description: The patient had risks, benefits and alternatives explained to andgave informed consent. The patient had a stable cardiopulmonary status and judged an adequate candidate for conscious sedation. The Colon [id number] [id number] was passed through the anus and advancedto the cecum, identified by appendiceal orifice and ileocecal valve. The colonoscopy was performed without difficulty. The patient toleratedthe procedure well. The quality of the bowel preparation was good. The ileocecal valve, appendiceal orifice, and rectum were photographed. Complications: No immediate complications. Estimated Blood Loss & Specimen: Estimated blood loss: none. Specimen collected - None Findings: The perianal and digital rectal examinations were normal. The entire examined colon appeared normal on direct and retroflexion views. Impressions/Post-Op Diagnosis: - The entire examined colon is normal on direct and retroflexionviews. - No specimens collected. Recommendation: - Patient has a contact number available for emergencies. The signsand symptoms of potential delayed complications were discussed with the patient. Return to normal activities tomorrow. Written discharge instructions were provided to the patient. - Resume previous diet. - Continue present medications. - Repeat colonoscopy in 10 years for screening purposes. Moderate Sedation: Moderate (conscious) sedation was administered by the endoscopy nurse and supervised by the endoscopist. The following parameters were monitored: oxygen saturation, heart rate, respiratory rate, blood pressure, adequacy of pulmonary ventilation and reponse to care. [facility] and nursing notes for moderate sedation details. Total physician intraservice time was 19 minutes. Troy Law MD 04/28/2018 10:49:17 AM This report has been signed electronically. Note Initiated On: 04/28/2018 9:35 AM Procedure Code(s): --- Professional --- 12400, Colonoscopy, flexible; diagnostic, including collection of specimen(s) bybrushing or washing, when performed (separateprocedure) Diagnosis Code(s): --- Professional --- Z12.11, Encounter for screening formalignant neoplasm of colon CPT copyright 2017 [employer]. All rights reserved. The codes documented in this report are preliminary and upon color consultant reviewmay be revised to meet current compliance requirements. Scope In: 10:29:44 AM Scope Withdrawal Time 0 hours 10 minutes 29 seconds Scope Out: 10:45:54 AM Troy Law MD PROCEDURE ORD Final Res ult from Last 3 Months or Most Recently Relevant to Health Maintenance Insurance 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
--- NOTE | 2025-03-24 15:15 | CRLHL7_ITS ---
For Patients: As a result of the Century Cures Act, medical imaging exams and procedure reports are released immediately into your electronic medical record. You may view this report before your referring provider. If you have questions, please contact your health care provider. INDICATION: Chest pain. Recent surgery. History DVT and PE. TECHNIQUE: Axial intravenously infused CT cuts were performed through the chest during the peak phase of pulmonary arterial contrast opacification with infusion of 95 mL of Isovue-370. COMPARISON: Chest radiograph 03/20/2025. CT scan 04/26/2016. FINDINGS: There are no pulmonary emboli. There is no aortic aneurysm or dissection. There is extensive dense atelectasis within both lower lobes worse on the left side. There are no pulmonary nodules or masses. There are no pleural or pericardial fluid collections. There are no enlarged hilar, mediastinal or axillary lymph nodes. The thoracic inlet appears normal. The visualized liver, spleen, pancreas, adrenals and the upper pole of the right kidney appear normal. There is a 4.0 cm of cyst at the upper pole of left kidney. There are no lytic or sclerotic skeletal lesions. IMPRESSION: 1. Negative for pulmonary emboli. 2. There is extensive dense atelectasis within both lower lobes especially on the left. Please note that all CT scans at this facility use dose modulation, iterative reconstruction, and/or weight-based dosing when appropriate to reduce radiation dose to as low as reasonably achievable. Dictated by Omid Shirley MD @ 03/24/2025 4:09:07 PM (Electronically Signed)
--- NOTE | 2025-03-24 15:18 | ED.GENADULT ---
HPI - General Adult General Date Seen: 03/24/25 Chief complaint: Chest Pain Stated complaint: Chest pain Time Seen by Provider: 03/24/25 14:54 History of Present Illness HPI narrative: Patient is a 59-year-old woman here for evaluation of some right-sided chest pain. She developed an infection in her right knee, she status post remote knee replacement on that side, a few weeks ago had developed some swelling and redness, was seen in orthopedic clinic and underwent a surgical procedure last week with washout, partial hardware removal and placement of antibiotic beads. She is scheduled to have the beads were removed tomorrow. 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 postprocedure early. She has been going to [facility] for IV antibiotics. Yesterday and today she has had some pain the right side of her chest which is localized, not particularly pleuritic, she has felt a little winded but she attributes that maybe to being in the knee immobilizer and a little increased difficulty getting around. She has not noted significant swelling in either leg. She has not had fever cough. No history of similar pain. She says that she mention did on [facility] today and they recommended that she come get checked out in anticipation of having surgery tomorrow. She does not smoke, here today with her . She notes she had pain yesterday for several hours, it gets better with oxycodone. It was there when she got up this morning, improved with oxycodone but has returned. Related Data Home Medications ?Medication ?Instructions ?Recorded ?Confirmed amlodipine 10 mg tablet 10 mg PO DAILY 09/17/22 03/24/25 hydrochlorothiazide 25 mg tablet 25 mg PO DAILY 09/17/22 03/24/25 rosuvastatin 20 mg tablet 20 mg PO DAILY 09/17/22 03/24/25 venlafaxine 75 mg capsule,extended 75 mg PO DAILY 09/17/22 03/24/25 release 24 hr metformin 850 mg tablet 850 mg PO BIDWM 07/22/23 03/24/25 Bacillus coagulans 1 cap PO DAILY 12/05/24 03/24/25 cholecalciferol (vitamin D3) 1 tab PO DAILY 12/05/24 03/24/25 fish oil-dha-epa 1 cap PO DAILY 12/05/24 03/24/25 mometasone-formoterol HFA 200 2 puff inhalation BID 12/05/24 03/24/25 mcg-5 mcg/actuation aerosol inhaler (Dulera) aspirin 81 mg tablet 81 mg PO DAILY 03/19/25 03/20/25 Held on 03/21/25. Instructions: restart after discussion with Ortho after Tuesday's surgery fluticasone propionate 50 2 spray intranasal DAILY 03/20/25 03/24/25 mcg/actuation nasal spray,suspension docusate sodium 100 mg capsule 100 mg PO DAILY 03/24/25 03/24/25 (Colace) Previous Rx's ?Medication ?Instructions ?Recorded acetaminophen 500 mg capsule 500 - 1,000 mg (1 - 2 x 500 mg) PO 03/21/25 Q6H PRN #100 caps ceftriaxone 1 gram solution for 1 g IVPB Q24H 4 weeks #1 ea 03/21/25 injection enoxaparin 30 mg/0.3 mL 30 mg (0.3 mL) subcut Q12H #3 mL 03/21/25 subcutaneous syringe oxycodone 5 mg tablet 2.5 - 5 mg (0.5 - 1 x 5 mg) PO 03/21/25 Q4-6H PRN pain #25 tabs Allergies Allergy/AdvReac Type Severity Reaction Status Date / Time adhesive Allergy Verified 03/24/25 15:03 cephalexin Allergy Verified 03/24/25 15:03 codeine Allergy Vomiting Verified 03/24/25 15:03 lidocaine Allergy Fainting Verified 03/24/25 15:03 Penicillins Allergy Verified 03/24/25 15:03 Review of Systems Status of ROS: Reports: 10 or more systems reviewed and unremarkable except as noted in History and below [facility] Medical History Effusion, right knee ?M25.461 - Effusion, right knee (ICD-10) Prediabetes ?R73.03 - Prediabetes (ICD-10) Hypertension ?I10 - Essential (primary) hypertension (ICD-10) Hyperlipidemia ?E78.5 - Hyperlipidemia, unspecified (ICD-10) Anxiety ?F41.9 - Anxiety disorder, unspecified (ICD-10) Left carpal tunnel syndrome ?G56.02 - Carpal tunnel syndrome, left upper limb (ICD-10) History of DVT (deep vein thrombosis) ?Z86.718 - Personal history of other venous thrombosis and embolism (ICD-10) KARINA (obstructive sleep apnea) ?G47.33 - Obstructive sleep apnea (adult) (pediatric) (ICD-10) Surgical History History of total left knee replacement (04/21/15) ?Z96.652 - Presence of left artificial knee joint (ICD-10) History of total right knee replacement (03/31/16) ?Z96.651 - Presence of right artificial knee joint (ICD-10) History of arthroscopy of left knee (11/25/16) ?Z98.890 - Other specified postprocedural states (ICD-10) History of arthroscopy of right knee (07/07/17) ?Z98.890 - Other specified postprocedural states (ICD-10) History of carpal tunnel surgery of right wrist (04/15/21) ?Z98.890 - Other specified postprocedural states (ICD-10) Social History What is your current living situation?: I presently have a place to live Problems where you live: no known problems Problems where you live details: none In the past 12 months, utilities in danger of being shut off: no In past 12 months, lack of transportation kept you from medical appts, meetings, work, or getting things needed for daily living: no In the past 12 mos, have been you worried that your food would run out before you had money to buy more?: never true In the past 12 mos, the food you bought just didn't last and you didn't have money to buy more?: never true Highest level of school completed/degree received: Master's degree Smoking Status: Never smoker Do you use any of these nicotine containing products: None Second hand tobacco smoke exposure: No How often do you have a drink containing alcohol: never How often do you have six or more drinks on one occasion: Never AUDIT-C Alcohol total score: 0 Non-prescribed substance use: denies use Caffeine: Yes (coffee daily) How often does anyone, including family, friends and others, physically hurt you: never How often does anyone, including family, friends and others, insult or talk down to you: never How often does anyone, including family, friends and others, threaten you with harm: never How often does anyone, including family, friends and others, scream or curse at you: never service: No Exam Narrative: Exam Narrative: Vital signs reviewed In general, alert, nontoxic date woman. She is breathing easily, looks comfortable. Head: Normocephalic, atraumatic. Eyes: Sclera clear. Pupils equal and reactive. ENT: Mucous membranes moist. Neck: Supple without adenopathy. Heart: Regular rate and rhythm without murmur. Chest nontender. Lungs: Clear. No increased work of breathing, crackles or wheezes. Abdomen: Soft, nontender to palpation. Extremities: She has an Kyree wrap and knee immobilizer in place on the right, not removed. No edema in either foot, the left lower extremity is normal without edema erythema or tenderness. Neurologic: Alert, conversant. Speech fluent, face symmetric. Moves all extremities equally. Skin: Warm, dry well perfused. Affect: Normal. Const: Vital Signs, click to edit/add: Vital Signs - 24 hr 03/24/25 14:53 03/24/25 16:02 Temperature 98.2 F Pulse Rate 85 Pulse Rate [Pulse Oximeter] 98 Respiratory Rate 18 16 Blood Pressure 153/106 H Blood Pressure [Le ft Upper Arm] 110/79 Pulse Oximetry 94 93 Oxygen Delivery Me thod Room Air Room Air Course Course ED Course: On arrival she had an EKG which shows a normal sinus rhythm, ventricular rate of 84, no acute ST segment changes. Unremarkable T-waves. Vital signs are stable, she looks comfortable, O2 sats are 94% on room air. She has been adequately managed on anticoagulation since her procedure, but given her history of PE do think this needs to be ruled out. With recent surgery and infection in this knee, I think D-dimer is going to be less helpful in terms of ruling out PE and overall I think she would be best served by just getting a CT scan to rule out PE. Will get a troponin, routine labs. Other diagnostic considerations would include pneumonia, pneumothorax, acute coronary syndrome or angina, pleural effusion, biliary colic or cholecystitis, pancreatitis etc.. Labs reviewed and reassuring. I looked at her chest CT, did not see any evidence of pulmonary embolism. She did have some infiltrate or atelectasis in bilateral lungs, radiology reads this as dense atelectasis. Not think this is likely related to her chest pain. She is feeling improved here, discussed that I do not have a clear explanation for her chest pain but I do not find any evidence of a serious cause right now. Her potassium was low at 3, recommended that we replaced that given that she has a repeat procedure tomorrow, I gave her 50 mEq here, pharmacies will be closed and now also not able to prescribe any before tomorrow, but I did give her an additional 40 mEq to take before tomorrow morning. Discussed that if she worsens in the interim, has severe pain, significant shortness of breath, fevers etcetera she can always return to the ER. Otherwise, she will have her procedure tomorrow as planned, continue you to use her oxycodone, primary care follow-up if she has ongoing concerns. Vital Signs Vital signs: Initial Vital Signs Temperature 98.2 F 03/24/25 14:53 Temperature Source Temporal Artery Scan 03/24/25 14:53 Pulse Rate 98 03/24/25 14:53 Respiratory Rate 18 03/24/25 14:53 Blood Pressure 110/79 03/24/25 14:53 Blood Pressure Mean 89 03/24/25 14:53 Blood Pressure Position Sitting 03/24/25 14:53 Pulse Oximetry 94 03/24/25 14:53 Oxygen Delivery Method Room Air 03/24/25 14:53 Vital Signs Temperature 98.2 F 03/24/25 14:53 Pulse Rate 98 03/24/25 14:53 Respiratory Rate 18 03/24/25 14:53 Blood Pressure 110/79 03/24/25 14:53 Pulse Oximetry 94 03/24/25 14:53 Oxygen Delivery Method Room Air 03/24/25 14:53 Temperature 98.2 F 03/24/25 14:53 Pulse Rate 85 03/24/25 16:02 Respiratory Rate 16 03/24/25 16:02 Blood Pressure 153/106 H 03/24/25 16:02 Pulse Oximetry 93 03/24/25 16:02 Oxygen Delivery Method Room Air 03/24/25 16:02 Medications Administered Medications: Discontinued Medications Generic Name Dose Route Start Last Admin Trade Name Freq PRN Reason Stop Dose Admin Morphine Sulfate 4 mg 03/24/25 15:15 03/24/25 15:56 Morphine 4 Mg/Ml Inj IVP 03/24/25 15:16 4 mg ONCE ONE Administration Potassium Bicarbonate 50 meq 03/24/25 16:11 03/24/25 16:19 Potassium Bicarb 25 Meq Effervescent Tab PO 03/24/25 16:12 50 meq ONCE ONE Administration Medical Decision Making Lab Data Labs: Lab Results 03/24/25 03/24/25 Range/Units 15:16 15:30 WBC 7.41 (4.50-11.00) K/uL RBC 4.10 (4.00-5.20) m/uL Hgb 12.5 (12.0-16.0) gm/dL Hct 38.5 (33.0-51.0) % MCV 94 (80-100) fL MCH 31 (26-34) pg MCHC 33 (32-36) gm/dL RDW Coeff of Aaliyah 12.2 (11.5-15.5) % Plt Count 288 (140-440) K/uL Neut % (Auto) 62.8 (42.0-72.0) % Lymph % (Auto) 22.9 (20-44) % [place] % (Auto) 11.5 H (0.0-11.0) % Eos % (Auto) 1.8 (0.0-7.0) % Baso % (Auto) 0.3 (0.0-3.0) % Neut # (Auto) 4.66 (1.7-7.0) K/uL Lymph # (Auto) 1.70 (0.90-2.90) K/uL [place] # (Auto) 0.90 (0.00-0.90) K/UL Eos # (Auto) 0.13 (0.00-0.50) K/uL Baso # (Auto) 0.02 (0.00-0.30) K/uL Abs Immat Gran (auto) 0.05 (0.00-0.30) K/uL Imm/Tot Granulo (auto) 0.7 % Sodium 135 (135-149) mmol/L Potassium 3.0 L (3.6-5.1) mmol/L Chloride 99 (96-114) mmol/L Carbon Dioxide 29 (20-32) mmol/L Anion Gap 7 (7-15) mEq/L BUN 10 (7-30) mg/dL Creatinine 0.6 (0.5-1.5) mg/dL Estimated Creat Clear 61.74 Estimated GFR 102 ml/min Glucose 111 (60-115) mg/dL Calcium 9.2 (8.4-10.6) mg/dL Total Bilirubin 0.6 (0.1-1.5) mg/dL Direct Bilirubin 0.1 (0.0-0.5) mg/dL AST 33 (12-35) U/L ALT 23 (4-35) U/L Alkaline Phosphatase 68 (40-150) U/L Total Protein 7.2 (6.0-8.3) g/dL Albumin 3.7 (3.3-5.0) g/dL POC Troponin I 0.02 (0.01-0.04) ng/ml Discharge Plan Discharge Clinical Impression: Right-sided chest pain, Hypokalemia Patient Disposition: Home, Self-Care Condition: Stable Instructions: Chest Pain (DC) Additional Instructions: Your workup today is unremarkable, there is no evidence of blood clot on your chest CT and no other explanation for your chest pain such as a pneumonia, collapsed lung, or heart problem. Your potassium is a little low today, and particularly with your upcoming surgery today we should replace that. You can continue to use your oxycodone as needed for pain. Return at any time for more severe symptoms or new problems such as severe shortness of breath, fevers, or other worsening. Prescriptions: No Action metformin 850 mg tablet 850 mg PO BIDWM aspirin 81 mg tablet 81 mg PO DAILY Dulera 200-5 mcg/actuation HFA aerosol inhaler 2 puff inhalation BID cholecalciferol (vitamin D3) 1 tab PO DAILY fish oil-dha-epa 1 cap PO DAILY Bacillus coagulans [Probiotic (B. coagulans)] 1 cap PO DAILY fluticasone propionate 50 mcg/actuation spray,suspension 2 spray INTRANASAL DAILY oxycodone 5 mg tablet 2.5 - 5 mg PO Q4-6H MDD 6 PRN (Reason: pain) Qty: 25 0RF Rx Instructions: Take as needed for postop pain: 2.5mg mild pain, 5mg moderate-severe pain; wean as tolerated. acetaminophen 500 mg capsule 500 - 1,000 mg PO Q6H MDD 4000mg PRNQty: 100 0RF enoxaparin 30 mg/0.3 mL syringe 30 mg subcut Q12H Qty: 3 0RF Rx Instructions: Take twice daily for blood clot protection. Last dose Tuesday morning (03/24/25) ceftriaxone 1 gram Recon Soln 1 g IVPB Q24H 28 Days Qty: 1 0RF docusate sodium [Colace] 100 mg capsule 100 mg PO DAILY amlodipine 10 mg tablet 10 mg PO DAILY Patient Comments: TAKE ONE TABLET BY MOUTH ONE TIME DAILY hydrochlorothiazide 25 mg tablet 25 mg PO DAILY Patient Comments: TAKE ONE TABLET BY MOUTH ONE TIME DAILY rosuvastatin 20 mg tablet 20 mg PO DAILY Patient Comments: TAKE ONE TABLET BY MOUTH ONE TIME DAILY venlafaxine 75 mg capsule,extended release 24hr 75 mg PO DAILY Patient Comments: Take 1 Capsule (75 mg) by mouth once daily with a meal Follow Up/Referrals: Iwona Del Rio MD [Primary Care Provider, Family Practice] Stand Alone Forms: [employer] Info Instructions
[2025-03-24 15:39] LABS: Basophils Absolute Auto 0.02 K/uL (0.00-0.30); Basophils Percent Auto 0.3 % (0.0-3.0); Eosinophils Absolute Auto 0.13 K/uL (0.00-0.50); Eosinophils Percent Auto 1.8 % (0.0-7.0); Hematocrit 38.5 % (33.0-51.0); Hemoglobin* 12.5 gm/dL (12.0-16.0); Immature Granulocytes Abs Auto 0.05 K/uL (0.00-0.30); Immature Granulocytes Pct Auto 0.7 %; Lymphocytes Percent Auto 22.9 % (20-44); Mean Corpuscular HGB Conc 33 gm/dL (32-36); Mean Corpuscular Hemoglobin 31 pg (26-34); Mean Corpuscular Volume 94 fL (80-100); Monocytes Percent Auto 11.5 % (0.0-11.0); Neutrophils Absolute Auto 4.66 K/uL (1.7-7.0); Neutrophils Percent Auto 62.8 % (42.0-72.0); Platelet Count* 288 K/uL (140-440); RDW Coefficient of Variation % 12.2 % (11.5-15.5); Slide Review Reflex No; White Blood Count* 7.41 K/uL (4.50-11.00)
[2025-03-24 15:46] LABS: Troponin, Point-of-Care* 0.02 ng/ml (0.01-0.04)
[2025-03-24 15:55] LABS: Albumin* 3.7 g/dL (3.3-5.0); Chloride* 99 mmol/L (96-114); Sodium* 135 mmol/L (135-149)
[2025-03-24] MEDS: MORPHINE 4 MG/ML INJ IVP (15:56)
[2025-03-24 15:58] LABS: Alanine Aminotransferase* 23 U/L (4-35); Anion Gap 7 mEq/L (7-15); Aspartate Amino Transferase* 33 U/L (12-35); Blood Urea Nitrogen* 10 mg/dL (7-30); Carbon Dioxide* 29 mmol/L (20-32); Creatinine* 0.6 mg/dL (0.5-1.5); Est. Creatinine Clearance* 61.74; Estimated Glomerular Filt Rate 102 ml/min
[2025-03-24 15:59] LABS: Alkaline Phosphatase* 68 U/L (40-150); Bilirubin Direct* 0.1 mg/dL (0.0-0.5); Bilirubin Total* 0.6 mg/dL (0.1-1.5); Calcium* 9.2 mg/dL (8.4-10.6); Glucose* 111 mg/dL (60-115); Total Protein* 7.2 g/dL (6.0-8.3)
[2025-03-24 16:02] VITALS: BP 153/106; PULSE 85; RESP 16; O2SAT 93
[2025-03-24] MEDS: POTASSIUM BICARB 25 MEQ EFFERVESCENT TAB 50 MEQ PO (16:19)
== END 2025-03-24 17:11 | disposition home or self-care (01) ==
PROVIDERS: Emergency Provider Emergency Medicine; PCP Family Medicine
DX: R07.9 Chest pain, unspecified (principal); E87.6 Hypokalemia
CPT/HCPCS: 36415; 71275; 80048; 80076; 84484; 85025; 93005; 96374; 99284; 99285; A9270; J2270; Q9967

== ENCOUNTER 2025-03-25 07:11 | Inpatient (IN) | payer BC, SELFPAY ==
[2025-03-22 14:09] VITALS: BP 140/79; PULSE 93; RESP 18; TEMP 36.7; O2SAT 96
[2025-03-25] VITALS (28 sets, daily range): BP systolic 119–179; BP diastolic 70–96; PULSE 68–98; RESP 12–20; TEMP 36.7–37.7; O2SAT 85–97; BMI 36.2
--- NOTE | 2025-03-25 08:06 | W.PM.H&PU ---
History & Physical Update History & Physical Update H&P Updates: She presented [facility] 03/24/2025 with some right upper chest pain. Workup included troponins which were negative. She wonders if this may be related to the PICC line and the PICC line placement from late last week. Otherwise, no interval changes noted.
[2025-03-25] MEDS: LACTATED RINGERS 1000 ML 1,000 ML 100 ML IV ×2 (08:30→11:45)
[2025-03-25] MEDS: SODIUM CHLORIDE 0.9 % (FLUSH) 10 ML SYRINGE IVF (08:31)
[2025-03-25] MEDS: ACETAMINOPHEN 500 MG TABLET 1000 MG PO ×2 (08:34→18:04)
[2025-03-25] MEDS: OXYCODONE (CR) 10 MG TAB.ER.12H PO (08:35)
[2025-03-25] MEDS: fentaNYL 100 MCG/2 ML inj IVP (09:40)
[2025-03-25] MEDS: MIDAZOLAM HCL 1 MG/ML inj IVP (09:40)
--- NOTE | 2025-03-25 09:46 | SUR.PREOP ---
TIME?OUT:?35, right knee PT/RN/MDA?VERIFICATION?OF?SURGICAL?SITE,?PROCEDURE,?AND?CONSENT OBTAINED?PRIOR?TO?INVASIVE?PROCEDURE.
[2025-03-25] MEDS: CEFAZOLIN 1 GM inj IVP (10:51)
[2025-03-25] MEDS: TRANEXAMIC ACID 100 MG/ML INJ 1000 MG IV (10:51)
--- NOTE | 2025-03-25 11:52 | CRLHL7_ITS ---
For Patients: As a result of the Cures Act, medical imaging exams and procedure reports are released immediately into your electronic medical record. You may view this report before your referring provider. If you have questions, please contact your health care provider. Indication: Postop Technique: Two views right knee portable Comparison: 03/20/2025 IMPRESSION: Revision of the antibiotic coated beads noted with smaller protocols located in the superior soft tissues. Joint effusion is present. Hardware intact. No loosening or fracture. Dictated by Eron Melgar MD @ 03/26/2025 11:01:57 AM (Electronically Signed)
--- NOTE | 2025-03-25 11:54 | PM.ORPRC ---
Procedure Note Date of procedure: 03/25/25 Procedure: PREOPERATIVE DIAGNOSIS: 1. Right total knee arthroplasty septic arthritis with retained antibiotic beads POSTOPERATIVE DIAGNOSIS: 1. Right total knee arthroplasty septic arthritis with retained antibiotic beads PROCEDURE: 1. Right revision total knee arthroplasty (polyethylene exchange 2. Right knee non dissolvable antibiotic bead removal and creation of new dissolvable antibiotic beads 3. Right knee extensive/major synovectomy/debridement SURGEON: Joseph Deluna MD. DECAL CUTTER: Gary Byrne PA-C - Of note, a skilled permit review assistant was critical for this case to aid in patient positioning, tissue retraction, limb manipulation/positioning, and closure. ANESTHESIA: Spinal anesthetic IMPLANTS: DePuy J&J all cemented TKA - Sigma components remain in place for the femur, tibia, and patella. The polyethylene was removed and exchanged for a new 12.5 mm polyethylene. TOURNIQUET: 40 minutes at 300 torr EBL: 10 mL COMPLICATIONS: None evident INDICATIONS: The patient is a pleasant 59-year-old female who underwent a right TKA in 2017 (Dr. Tran). Following the surgery, she did very good. Unfortunately, she developed a spontaneous effusion approximately 2.5 weeks ago. She returns today for stage II of the double DAIR technique. FINDINGS: Relatively healthy-looking tissues without purulence or foul odor. Some serosanguineous fluid was expressed deep in the joint capsule. Antibiotic beads were identified and all 16 were removed. Knee ROM prior to complete skin closure showed 0-110 degrees. DESCRIPTION OF PROCEDURE: Following a thorough discussion of risks, benefits, and alternatives consent was obtained and the right knee was marked. The patient was brought to the operating room and placed supine on the operating table. Induction of anesthesia was undertaken. 2 g IV Ancef and 1 g tranexamic acid was administered within 1 hr of incision preoperatively. Proper time-out was performed identifying proper patient, site, procedure. The operative extremity was prepped and draped in the appropriate sterile fashion using ChloraPrep after the patient was positioned supine with all bony prominences well padded. A longitudinal, anterior, midline skin incision was reopened and the PDS suture removed. The previous subvastus approach was reopened and the associated PDS suture was also removed from this. 3 L normal saline irrigation was then performed. We then used a curette to perform extensive synovectomy/tear synovectomy debriding the capsular tissues in the pouch, the gutters, and posterior aspects of the knee as well as retropatellar fat pad and posterior patellar tendon region. The polyethylene was removed and antibiotic beads removed. Chlorhexidine brush was also utilized to scrub the various accessible points of the TKA components and the tissues. 3 L irrigation normal saline again performed. The new polyethylene was opened and inserted without difficulty. 3 minute Betadine soak was performed. Finally, 3 L normal saline was again performed totaling 9 L of normal saline irrigation. Dissolvable antibiotic beads were mixed on the back table utilizing 3 mL of liquid tobramycin with the powder in the small bead silicone mold. Once the beads were created and hardened, they were removed from the mold and after irrigation was dried and the knee was prepared for closure, approximately half of the beads were placed in the suprapatellar pouch. Closure was performed as per typical utilizing #0 Stratafix for the quad tendon/retinaculum. 2-0 Stratafix for the subcutaneous and 4-0 Stratafix for subcuticular closure. Dressings were applied and the patient was awoken from anesthesia after the tourniquet deflated and transferred the PACU in stable condition. A skilled permit review assistant was critical for this case to aid in patient positioning, tissue retraction, bone exposure, limb manipulation/positioning, patient safety, and closure. PLAN: 1. Weight bear as tolerated operative extremity. 2. Empiric antibiotics 3. Ice. 4. PT/OT consults for ambulation assistance/mobility education. 5. Social work consult for discharge planning. 6. DVT prophylaxis with at SCDs and Xarelto, given history of DVT 7. PICC line to be continued with IV antibiotics anticipated x4 plus weeks then likely transition oral antibiotics. 8. Knee immobilizer at this time but may remove for knee range of motion as tolerated. 9. Anticipate being able to discharge from hospital when she is mobilizing safely and medically remains stable.
--- NOTE | 2025-03-25 11:56 | P.ANES_ITS ---
Anesthesia Charges Start Date/Time Anesthesia Start Date: 03/25/25 Anesthesia Start Time: 10:20 Stop Date/Time Anesthesia Stop Date: 03/25/25 Anesthesia Stop Time: 12:56 Coding CPT Codes CPT Codes: ANESTH KNEE ARTHROPLASTY - 27875 ([id number]) P2 - PATIENT W/MILD SYST DISEASE, QK - SHORT FILLER BUNCH MACHINE OPERATOR 2-4 CNCRNT ANES PROC, QX - BAR PORTER SVC W/ MD MED DIRECTION
--- NOTE | 2025-03-25 11:56 | P.NB_ITS ---
Nerve Block Nerve Block Time Seen by Provider: 09:48 Date Seen: 03/25/25 Type of block requested by surgeon for post-operative analgesia: adductor canal Side: right Time out performed: Yes Verification of patient name: Yes Verification of date of : Yes Site marking: site marked Name of person performing procedure: Oscar Continuous monitoring Was continuous monitoring of O2 sat, B/P, director of cardiac cath lab, recorded every 15 minutes?: Yes Procedure Checklist: sterile prep, needles and gloves Ultrasound guided. Images saved: Yes Medications given in 5ml increments after negative aspiration: Marcaine %: 0.25 mL: 15 Needle gauge: 20 Precedex (mcg): 25 Patient tolerated procedure well: Yes Block Charges Block Charge (with Pro Fee): Femoral Nerve Use of Ultrasound Machine for Block: Yes- US Guidance/pain block
--- NOTE | 2025-03-25 11:56 | P.NB_ITS ---
Nerve Block Nerve Block Time Seen by Provider: 09:48 Date Seen: 03/25/25 Type of block requested by surgeon for post-operative analgesia: geniculars Side: right Time out performed: Yes Verification of patient name: Yes Verification of date of : Yes Site marking: site marked Name of person performing procedure: Oscar Continuous monitoring Was continuous monitoring of O2 sat, B/P, sole molder, recorded every 15 minutes?: Yes Procedure Checklist: sterile prep, needles and gloves Ultrasound guided. Images saved: Yes Medications given in 5ml increments after negative aspiration: Marcaine %: 0.25 mL: 9 Needle gauge: 25 Patient tolerated procedure well: Yes Block Charges Block Charge (with Pro Fee): Genicular Nerve Block
--- NOTE | 2025-03-25 11:56 | W.ANESCHARGE ---
Anesthesia Charges Start Date/Time Anesthesia Start Date: 03/25/25 Anesthesia Start Time: 10:20 Stop Date/Time Anesthesia Stop Date: 03/25/25 Anesthesia Stop Time: 12:56 Coding CPT Codes CPT Codes: ANESTH KNEE ARTHROPLASTY - 33724 ([id number]) P2 - PATIENT W/MILD SYST DISEASE, QK - INSIDE SALES REPRESENTATIVE 2-4 CNCRNT ANES PROC, QX - STAFF PHYSICAL THERAPIST SVC W/ MD MED DIRECTION
--- NOTE | 2025-03-25 12:53 | P.ANES_ITS ---
Anesthesia Charges Start Date/Time Anesthesia Start Date: 03/25/25 Anesthesia Start Time: 10:20 Stop Date/Time Anesthesia Stop Date: 03/25/25 Anesthesia Stop Time: 12:56 Coding CPT Codes CPT Codes: ANESTH KNEE ARTHROPLASTY - 00051 ([id number]) P2 - PATIENT W/MILD SYST DISEASE, QK - BACKEND JAVA DEVELOPER 2-4 CNCRNT ANES PROC, QX - STEEPLECHASE JOCKEY SVC W/ MD MED DIRECTION
--- NOTE | 2025-03-25 12:53 | W.ANESCHARGE ---
Anesthesia Charges Start Date/Time Anesthesia Start Date: 03/25/25 Anesthesia Start Time: 10:20 Stop Date/Time Anesthesia Stop Date: 03/25/25 Anesthesia Stop Time: 12:56 Coding CPT Codes CPT Codes: ANESTH KNEE ARTHROPLASTY - 13181 ([id number]) P2 - PATIENT W/MILD SYST DISEASE, QK - LINE ORDERING CLINICIAN 2-4 CNCRNT ANES PROC, QX - MOTOR ANALYST SVC W/ MD MED DIRECTION
[2025-03-25] MEDS: fentaNYL 100 MCG/2 ML inj 50 MCG IVP ×2 (13:09→13:23)
--- NOTE | 2025-03-25 13:27 | SUR.PHASEI ---
Patient experiencing right knee pain during recovery. 2 doses of fentanyl given for a pain level of 6.
[2025-03-25] MEDS: HYDROmorphone 0.5 mg/0.5 ml inj IVP (13:37)
--- NOTE | 2025-03-25 13:48 | SUR.PHASEI ---
Anesthesia consulted on pain management and blood pressure. Patient did not take her blood pressure medication today. Anesthesia not concerned with blood pressure but would like to get pain better controlled. Dilaudid given, Pain level is coming down.
--- NOTE | 2025-03-25 13:50 | SUR.OPER ---
Patient meets discharge criteria
--- NOTE | 2025-03-25 14:45 | SUR.PHASEII ---
pt here in [facility] waiting for availability on [facility]
[2025-03-25] MEDS: POTASSIUM BICARB 25 MEQ EFFERVESCENT TAB PO ×3 (18:04→22:11)
[2025-03-25] MEDS: OXYCODONE 5 MG TABLET PO (18:04)
[2025-03-25] MEDS: METFORMIN 850 MG TABLET PO (18:05)
[2025-03-25] MEDS: cefTRIAXone 2 GM in 0.9 % SODIUM CHLORIDE Mini-bag 100 ML IVPB (18:17)
[2025-03-25] MEDS: 0.9 % SODIUM CHLORIDE 250 ml IV (19:27)
--- NOTE | 2025-03-25 19:31 | PC.NURSE ---
Nursing Care Hours: [id number] pt this shift calm and cooperative, alert and oriented. SBA with walker and gait belt, pt tolerated well. Pain /, treated with PO meds. VSS. Knee immobilizer on. PICC in place. Infusion through L wrist IV. SL d/t PO intake adequate. Potassium replacement. Pt reported feeling easily fatigued last couple weeks.
[2025-03-25] MEDS: SENNOSIDES 1 TAB TABLET 2 TAB PO (20:09)
[2025-03-25] MEDS: NON-FORMULARY MEDICATION (Mometasone-Formoterol [Dulera] 200-5 mcg/actuation HFA aerosol i 2 EACH IH (20:10)
--- NOTE | 2025-03-25 21:47 | PM.IMCN1 ---
Date of Consult Consult date: 03/25/25 Requesting Physician: Orthopedics Primary Care Provider: Iwona Del Rio MD Consult Narrative Narrative: Fanta Chand is a 59 year old female admitted to the hospital for surgical management of right total knee arthroplasty septic arthritis. Patient had bilateral knee arthroplasties about 9 in 10 years ago. Procedures were uncomplicated except she developed a DVT and PE 1 week after her 2nd knee surgery. She was also on hormonal therapy at the time. This was treated with anticoagulation as an outpatient and she recovered uneventfully. She never had any problems with the prosthetic knee joints. Starting about 3 weeks ago she developed pain, redness and swelling in her right knee. She was eventually diagnosed with a septic right knee joint. She never had a fever. Five days ago she was taken to the OR for revision of her knee arthroplasty with polyethylene exchange and placement of antibiotic beads and debridement of the synovium. She has been on ceftriaxone 2 g IV daily since the 1st procedure. This procedure was repeated today with removal of the antibiotic beads and placement of new dissolving antibiotic beads. There were no apparent complications and minimal blood loss. Cultures of blood and synovial fluid obtained last week are showing no growth. She continues to generally feel well without fever. She does report some nausea and constipation. She has been taking relatively regular oxycodone. Last bowel movement was 5 days ago The cause for the infection is not clear. She has not had any trauma or active infection elsewhere in her body that could account for this. No recent dental problems. No immune compromise. Review of Systems Narrative: Review of systems is negative except as noted above. [facility] Medical History (Updated 03/25/25 @ 22:10 by Fredy Diaz MD) Asthma ?J45.909 - Unspecified asthma, uncomplicated (ICD-10) Septic arthritis of knee, right ?M00.9 - Pyogenic arthritis, unspecified (ICD-10) Effusion, right knee ?M25.461 - Effusion, right knee (ICD-10) Prediabetes ?R73.03 - Prediabetes (ICD-10) Hypertension ?I10 - Essential (primary) hypertension (ICD-10) Hyperlipidemia ?E78.5 - Hyperlipidemia, unspecified (ICD-10) Anxiety ?F41.9 - Anxiety disorder, unspecified (ICD-10) Left carpal tunnel syndrome ?G56.02 - Carpal tunnel syndrome, left upper limb (ICD-10) History of DVT (deep vein thrombosis) ?Z86.718 - Personal history of other venous thrombosis and embolism (ICD-10) KARINA (obstructive sleep apnea) ?G47.33 - Obstructive sleep apnea (adult) (pediatric) (ICD-10) Surgical History History of revision of total replacement of right knee joint (03/25/25) ?Z96.651 - Presence of right artificial knee joint (ICD-10) History of total left knee replacement (04/21/15) ?Z96.652 - Presence of left artificial knee joint (ICD-10) History of total right knee replacement (03/31/16) ?Z96.651 - Presence of right artificial knee joint (ICD-10) History of arthroscopy of left knee (11/25/16) ?Z98.890 - Other specified postprocedural states (ICD-10) History of arthroscopy of right knee (07/07/17) ?Z98.890 - Other specified postprocedural states (ICD-10) History of carpal tunnel surgery of right wrist (04/15/21) ?Z98.890 - Other specified postprocedural states (ICD-10) Social History (Updated 03/25/25 @ 22:01 by Fredy Diaz MD) Narrative: She lives in [place] with her . is healthcare power of banking attorney. 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 She does not smoke. She rarely drinks alcohol. Code status is full. What is your current living situation?: I presently have a place to live Problems where you live: no known problems Problems where you live details: none In the past 12 months, utilities in danger of being shut off: no In past 12 months, lack of transportation kept you from medical appts, meetings, work, or getting things needed for daily living: no In the past 12 mos, have been you worried that your food would run out before you had money to buy more?: never true In the past 12 mos, the food you bought just didn't last and you didn't have money to buy more?: never true Highest level of school completed/degree received: don't know Smoking Status: Never smoker Do you use any of these nicotine containing products: None Second hand tobacco smoke exposure: No How often do you have a drink containing alcohol: monthly or less How often do you have six or more drinks on one occasion: Never AUDIT-C Alcohol total score: 1 Non-prescribed substance use: denies use Caffeine: No How often does anyone, including family, friends and others, physically hurt you: never How often does anyone, including family, friends and others, insult or talk down to you: never How often does anyone, including family, friends and others, threaten you with harm: never How often does anyone, including family, friends and others, scream or curse at you: never service: No Meds Home Medications and Allergies Home Medications ?Medication ?Instructions ?Recorded ?Confirmed ?Type amlodipine 10 mg tablet 10 mg PO DAILY 09/17/22 03/25/25 History hydrochlorothiazide 25 mg tablet 25 mg PO DAILY 09/17/22 03/25/25 History rosuvastatin 20 mg tablet 20 mg PO DAILY 09/17/22 03/25/25 History venlafaxine 75 mg capsule,extended 75 mg PO DAILY 09/17/22 03/25/25 History release 24 hr metformin 850 mg tablet 850 mg PO BIDWM 07/22/23 03/25/25 History Bacillus coagulans 1 cap PO DAILY 12/05/24 03/25/25 History cholecalciferol (vitamin D3) 1 tab PO DAILY 12/05/24 03/25/25 History fish oil-dha-epa 1 cap PO DAILY 12/05/24 03/25/25 History mometasone-formoterol HFA 200 2 puff inhalation BID 12/05/24 03/25/25 History mcg-5 mcg/actuation aerosol inhaler (Dulera) aspirin 81 mg tablet 81 mg PO DAILY 03/19/25 03/20/25 History Held on 03/21/25. Instructions: restart after discussion with Ortho after Tuesday's surgery fluticasone propionate 50 2 spray intranasal DAILY 03/20/25 03/24/25 History mcg/actuation nasal spray,suspension acetaminophen 500 mg capsule 500 - 1,000 mg (1 - 2 x 500 mg) PO 03/21/25 03/25/25 Rx Q6H PRN #100 caps ceftriaxone 1 gram solution for 1 g IVPB Q24H 4 weeks #1 ea 03/21/25 03/25/25 Rx injection enoxaparin 30 mg/0.3 mL 30 mg (0.3 mL) subcut Q12H #3 mL 03/21/25 03/25/25 Rx subcutaneous syringe oxycodone 5 mg tablet 2.5 - 5 mg (0.5 - 1 x 5 mg) PO 03/21/25 03/25/25 Rx Q4-6H PRN pain #25 tabs docusate sodium 100 mg capsule 100 mg PO DAILY 03/24/25 03/25/25 History (Colace) rivaroxaban 10 mg tablet (Xarelto) 10 mg PO DAILY #14 tabs 03/25/25 Rx Allergies Allergy/AdvReac Type Severity Reaction Status Date / Time adhesive Allergy Verified 03/24/25 15:03 cephalexin Allergy Verified 03/24/25 15:03 codeine Allergy Vomiting Verified 03/24/25 15:03 lidocaine Allergy Fainting Verified 03/24/25 15:03 Penicillins Allergy Verified 03/25/25 07:36 Exam Narrative: Exam Narrative: She is alert and appears in no distress. She gives her own history. Oropharynx with small airway. Dry mucous membranes. Neck is supple without mass or adenopathy. Respirations are clear to auscultation. Breathing is unlabored. Cardiovascular: S1, S2, regular rate and rhythm. Abdomen: Bowel sounds active. Abdomen is soft without tenderness or mass. Right lower extremity is in a knee immobilizer and compression bandage. This is not removed to inspect her knee. Foot and ankle are normal with intact pulses, no edema, intact sensation and motion. Left lower extremity is normal in pulses, motion, sensation, strength. No edema Const: Vital Signs, click to edit/add: Vital Signs - 24 hr 03/25/25 07:51 03/25/25 09:40 03/25/25 09:45 Temperature 99.2 F Pulse Rate 89 86 79 Pulse Rate [Right Pulse Oximeter] Respiratory Rate 20 20 16 Blood Pressure 128/75 149/80 H 133/75 Blood Pressure [Le ft Arm] Pulse Oximetry 93 95 95 Oxygen Delivery Me thod Room Air Nasal Cannula Nasal Cannula Oxygen Flow Rate 2 2 03/25/25 09:51 03/25/25 12:52 03/25/25 12:55 Temperature 98.2 F Pulse Rate 74 73 68 Pulse Rate [Right Pulse Oximeter] Respiratory Rate 16 19 12 Blood Pressure 119/70 147/78 H 153/84 H Blood Pressure [Le ft Arm] Pulse Oximetry 97 95 96 Oxygen Delivery Me thod Nasal Cannula Nasal Cannula Oxygen Flow Rate 2 2 03/25/25 13:00 03/25/25 13:05 03/25/25 13:10 Temperature Pulse Rate 69 72 74 Pulse Rate [Right Pulse Oximeter] Respiratory Rate 18 16 20 Blood Pressure 173/85 H 167/85 H 179/89 H Blood Pressure [Le ft Arm] Pulse Oximetry 95 96 95 Oxygen Delivery Me thod Nasal Cannula Oxygen Flow Rate 2 03/25/25 13:15 03/25/25 13:20 03/25/25 13:25 Temperature Pulse Rate 74 79 75 Pulse Rate [Right Pulse Oximeter] Respiratory Rate 20 14 16 Blood Pressure 175/89 H 168/94 H 172/85 H Blood Pressure [Le ft Arm] Pulse Oximetry 95 96 96 Oxygen Delivery Me thod Nasal Cannula Oxygen Flow Rate 2 03/25/25 13:30 03/25/25 13:35 03/25/25 13:40 Temperature 99.8 F H Pulse Rate 73 78 76 Pulse Rate [Right Pulse Oximeter] Respiratory Rate 16 18 12 Blood Pressure 177/90 H 161/83 H 173/84 H Blood Pressure [Le ft Arm] Pulse Oximetry 96 94 94 Oxygen Delivery Me thod Nasal Cannula Nasal Cannula Oxygen Flow Rate 2 2 03/25/25 13:45 03/25/25 14:10 03/25/25 14:25 Temperature 98.2 F Pulse Rate 72 80 76 Pulse Rate [Right Pulse Oximeter] Respiratory Rate 16 16 16 Blood Pressure 179/88 H 144/86 H 154/94 H Blood Pressure [Le ft Arm] Pulse Oximetry 94 92 95 Oxygen Delivery Me thod Nasal Cannula Nasal Cannula Oxygen Flow Rate 2 2 03/25/25 14:40 03/25/25 14:55 03/25/25 15:20 Temperature Pulse Rate 87 88 98 Pulse Rate [Right Pulse Oximeter] Respiratory Rate 16 16 16 Blood Pressure 148/89 H 148/87 H 174/96 H Blood Pressure [Le ft Arm] Pulse Oximetry 93 93 85 L Oxygen Delivery Me thod Nasal Cannula Nasal Cannula Room Air Oxygen Flow Rate 2 03/25/25 15:30 03/25/25 16:00 03/25/25 16:30 Temperature Pulse Rate 88 79 78 Pulse Rate [Right Pulse Oximeter] Respiratory Rate Blood Pressure 129/79 153/86 H 152/83 H Blood Pressure [Le ft Arm] Pulse Oximetry 93 93 95 Oxygen Delivery Me thod Nasal Cannula Nasal Cannula Nasal Cannula Oxygen Flow Rate 1 1 1 03/25/25 17:00 03/25/25 18:01 03/25/25 19:00 Temperature Pulse Rate 78 78 94 Pulse Rate [Right Pulse Oximeter] Respiratory Rate 16 16 16 Blood Pressure 145/85 H 139/86 138/76 Blood Pressure [Le ft Arm] Pulse Oximetry 93 88 92 Oxygen Delivery Me thod Room Air Room Air Room Air Oxygen Flow Rate 03/25/25 19:30 Temperature 98.1 F Pulse Rate Pulse Rate [Right Pulse Oximeter] 90 Respiratory Rate 16 Blood Pressure Blood Pressure [Le ft Arm] 124/72 Pulse Oximetry 91 Oxygen Delivery Me thod Room Air Oxygen Flow Rate 0 Documenting provider has reviewed patient's vital signs: yes Assessment and Plan Assessment and plan (1) Septic arthritis of knee, right: Problem comment: Continue with surgical and antibiotic management, double DAIR technique. Consider consultation of Infectious Disease specialist for ongoing management in light of negative cultures and need for ongoing outpatient antibiotic therapy Status: Acute (2) Hypokalemia: Problem comment: Replace and monitor. Probably due to hydrochlorothiazide. Consider outpatient potassium supplement Status: Acute (3) Right-sided chest pain: Problem comment: Recurrent chest pain evaluated in the emergency department yesterday. Reassuring evaluation. No PE. Status: Acute (4) Prediabetes: Problem comment: - Last A1c 5.7 Status: Acute (5) History of DVT (deep vein thrombosis): Problem comment: Recommend prophylactic dose of Xarelto or Eliquis Status: Acute (6) KARINA (obstructive sleep apnea): Problem comment: Not on CPAP. She manages this by sleeping on her side. At risk for worsening of this condition with opioid therapy. Status: Acute (7) Asthma: Problem comment: She reports this is well controlled with her routine inhaler use Status: Acute Plan Patient is admitted the hospital force surgical management of her septic joint. Also managing other medical problems including sleep apnea, hypokalemia, history of DVT and recent chest pain and asthma Total Time Spent Total Time Spent: Total time spent today is 60 minutes in coordination of care, reviewing outside records and discussing with patient and other providers ongoing management.
[2025-03-26 00:11] VITALS: BP 152/87; PULSE 85; RESP 16; TEMP 36.7; O2SAT 91
[2025-03-26 00:12] VITALS: RESP 16; O2SAT 91
[2025-03-26] MEDS: ACETAMINOPHEN 500 MG TABLET 1000 MG PO ×3 (00:14→14:09)
[2025-03-26 04:26] VITALS: BP 150/84; PULSE 90; RESP 18; TEMP 36.5; O2SAT 90
[2025-03-26 06:39] LABS: Basophils Absolute Auto 0.01 K/uL (0.00-0.30); Basophils Percent Auto 0.1 % (0.0-3.0); Eosinophils Absolute Auto 0.01 K/uL (0.00-0.50); Eosinophils Percent Auto 0.1 % (0.0-7.0); Hematocrit 34.1 % (33.0-51.0); Hemoglobin* 11.1 gm/dL (12.0-16.0); Immature Granulocytes Abs Auto 0.02 K/uL (0.00-0.30); Immature Granulocytes Pct Auto 0.2 %; Lymphocytes Percent Auto 13.4 % (20-44); Mean Corpuscular HGB Conc 33 gm/dL (32-36); Mean Corpuscular Hemoglobin 31 pg (26-34); Mean Corpuscular Volume 94 fL (80-100); Monocytes Percent Auto 8.7 % (0.0-11.0); Neutrophils Percent Auto 77.5 % (42.0-72.0); Platelet Count* 305 K/uL (140-440); Red Blood Count 3.63 m/uL (4.00-5.20); White Blood Count* 10.07 K/uL (4.50-11.00)
[2025-03-26 06:40] LABS: Slide Review Reflex No
[2025-03-26 06:53] LABS: Sodium* 137 mmol/L (135-149)
[2025-03-26 06:54] LABS: Potassium* 4.2 mmol/L (3.6-5.1)
--- NOTE | 2025-03-26 06:55 | PC.NURSE ---
Pt alert and oriented. Pt up with SBA with walker. Pt?s VSS. Pt slept throughout the night.?Pt had minimal complaints of pain.
[2025-03-26 06:57] LABS: Blood Urea Nitrogen* 10 mg/dL (7-30); Creatinine* 0.6 mg/dL (0.5-1.5); Est. Creatinine Clearance* 57.45; Estimated Glomerular Filt Rate 102 ml/min; Magnesium* 2.1 mg/dL (1.5-2.6)
[2025-03-26 07:00] VITALS: BP 165/85; PULSE 90; RESP 20; TEMP 36.5; O2SAT 94
[2025-03-26] MEDS: METFORMIN 850 MG TABLET PO (09:29)
[2025-03-26] MEDS: POTASSIUM CHLORIDE 10 MEQ CAPSULE ER PO (09:29)
[2025-03-26] MEDS: hydroCHLOROthiazide 25 MG TABLET PO (09:30)
[2025-03-26] MEDS: RIVAROXABAN 10 MG TABLET PO (09:30)
[2025-03-26] MEDS: SENNOSIDES 1 TAB TABLET 2 TAB PO (09:30)
[2025-03-26] MEDS: ROSUVASTATIN CALCIUM 10 MG TABLET 20 MG PO (09:30)
[2025-03-26] MEDS: VENLAFAXINE ER 75 MG CAPSULE PO (09:30)
[2025-03-26] MEDS: DOCUSATE SODIUM 100 MG CAPSULE PO (09:30)
[2025-03-26] MEDS: NON-FORMULARY MEDICATION (Mometasone-Formoterol [Dulera] 200-5 mcg/actuation HFA aerosol i 2 EACH IH (09:31)
[2025-03-26] MEDS: polyethylene glycoL 3350 17 GM PACK PO (09:32)
--- NOTE | 2025-03-26 09:52 | REH.OT ---
OT consult order received. When checking in w/ pt. today, she has no new concerns since her OT eval last week. She has AE and assistance in place at home. OT will not complete formal evaluation on pt. during this stay.
[2025-03-26 11:00] VITALS: BP 165/81; PULSE 86; RESP 20; TEMP 36.5; O2SAT 93
--- NOTE | 2025-03-26 11:01 | PC.SOCIAL ---
enterprise services manager consult: SW met with patient to see if there are any needs or supports for when she goes home. Patient states that she has support from her mom, daughter, and . Patient states she doesn't have any needs at this time. SW to assist if needs arise.
--- NOTE | 2025-03-26 12:14 | PM.ORPN ---
Subjective Subjective Date Seen: 03/26/25 Principal diagnosis: POD 1 right knee extensive synovectomy, poly exchange, ABX bead swap Interval history: Patient reports doing well. No acute events over night. She feels her pain this round was better than the initial revision round. Pain managed with scheduled and PRN medications, ice. She only needed oxycodone last night 18:00 hours, nothing since that time. The rash at her upper right thigh is irritating and itchy. DVT prophylaxis: Rivaroxaban, SCDs, walking. Denies fevers, chills, aches, N/V, CP, SOB/HE, or lightheadedness. Ortho Exam Narrative Exam Narrative: -Patient appears comfortable; no apparent acute distress -Knee immobilizer in place -Rash to the proximal thigh more prominent on the medial, lateral, and small area on the posterior thigh. Skin intact. This appears improved from yesterday 03/25/2025 -Alert and oriented times 3 -Operative knee moderately swollen; soft tissues supple; no ecchymosis; no erythematous streaking Warmth appropriate -Surgical dressing clean, dry, intact; no drainage -Bilateral calfs soft; no significant swelling, edema, tenderness, erythema, discoloration, warmth, or palpable cords -2+ DP/PT pulses, intact dermatomes and myotomes distally (5/5 strength) -Unable to straight leg raise Const Vital Signs, click to edit/add: Vital Signs - 24 hr 03/25/25 12:52 03/25/25 12:55 03/25/25 13:00 Temperature 98.2 F Pulse Rate 73 68 69 Pulse Rate [Right Pulse Oximeter] Respiratory Rate 19 12 18 Blood Pressure 147/78 H 153/84 H 173/85 H Blood Pressure [Left Arm] Pulse Oximetry 95 96 95 Oxygen Delivery Method Nasal Cannula Oxygen Flow Rate 2 03/25/25 13:05 03/25/25 13:10 03/25/25 13:15 Temperature Pulse Rate 72 74 74 Pulse Rate [Right Pulse Oximeter] Respiratory Rate 16 20 20 Blood Pressure 167/85 H 179/89 H 175/89 H Blood Pressure [Left Arm] Pulse Oximetry 96 95 95 Oxygen Delivery Method Nasal Cannula Oxygen Flow Rate 2 03/25/25 13:20 03/25/25 13:25 03/25/25 13:30 Temperature 99.8 F H Pulse Rate 79 75 73 Pulse Rate [Right Pulse Oximeter] Respiratory Rate 14 16 16 Blood Pressure 168/94 H 172/85 H 177/90 H Blood Pressure [Left Arm] Pulse Oximetry 96 96 96 Oxygen Delivery Method Nasal Cannula Oxygen Flow Rate 2 03/25/25 13:35 03/25/25 13:40 03/25/25 13:45 Temperature Pulse Rate 78 76 72 Pulse Rate [Right Pulse Oximeter] Respiratory Rate 18 12 16 Blood Pressure 161/83 H 173/84 H 179/88 H Blood Pressure [Left Arm] Pulse Oximetry 94 94 94 Oxygen Delivery Method Nasal Cannula Nasal Cannula Oxygen Flow Rate 2 2 03/25/25 14:10 03/25/25 14:25 03/25/25 14:40 Temperature 98.2 F Pulse Rate 80 76 87 Pulse Rate [Right Pulse Oximeter] Respiratory Rate 16 16 16 Blood Pressure 144/86 H 154/94 H 148/89 H Blood Pressure [Left Arm] Pulse Oximetry 92 95 93 Oxygen Delivery Method Nasal Cannula Nasal Cannula Nasal Cannula Oxygen Flow Rate 2 2 03/25/25 14:55 03/25/25 15:20 03/25/25 15:30 Temperature Pulse Rate 88 98 88 Pulse Rate [Right Pulse Oximeter] Respiratory Rate 16 16 Blood Pressure 148/87 H 174/96 H 129/79 Blood Pressure [Left Arm] Pulse Oximetry 93 85 L 93 Oxygen Delivery Method Nasal Cannula Room Air Nasal Cannula Oxygen Flow Rate 2 1 03/25/25 16:00 03/25/25 16:30 03/25/25 17:00 Temperature Pulse Rate 79 78 78 Pulse Rate [Right Pulse Oximeter] Respiratory Rate 16 Blood Pressure 153/86 H 152/83 H 145/85 H Blood Pressure [Left Arm] Pulse Oximetry 93 95 93 Oxygen Delivery Method Nasal Cannula Nasal Cannula Room Air Oxygen Flow Rate 1 1 03/25/25 18:01 03/25/25 19:00 03/25/25 19:30 Temperature 98.1 F Pulse Rate 78 94 Pulse Rate [Right Pulse Oximeter] 90 Respiratory Rate 16 16 16 Blood Pressure 139/86 138/76 Blood Pressure [Left Arm] 124/72 Pulse Oximetry 88 92 91 Oxygen Delivery Method Room Air Room Air Room Air Oxygen Flow Rate 0 03/26/25 00:11 03/26/25 00:12 03/26/25 00:12 Temperature 98.1 F Pulse Rate Pulse Rate [Right Pulse Oximeter] 85 Respiratory Rate 16 16 Blood Pressure Blood Pressure [Left Arm] 152/87 H Pulse Oximetry 91 91 91 Oxygen Delivery Method Room Air Room Air Oxygen Flow Rate 0 0 03/26/25 04:26 03/26/25 07:00 03/26/25 07:00 Temperature 97.7 F Pulse Rate Pulse Rate [Right Pulse Oximeter] 90 Respiratory Rate 18 20 Blood Pressure Blood Pressure [Left Arm] 150/84 H Pulse Oximetry 90 94 94 Oxygen Delivery Method Room Air Room Air Oxygen Flow Rate 0 03/26/25 07:00 Temperature 97.7 F Pulse Rate Pulse Rate [Right Pulse Oximeter] 90 Respiratory Rate 20 Blood Pressure Blood Pressure [Left Arm] 165/85 H Pulse Oximetry 94 Oxygen Delivery Method Room Air Oxygen Flow Rate Assessment and Plan Assessment and plan (1) Septic arthritis of knee, right: Problem details: Continue with surgical and antibiotic management, double DAIR technique. Consider consultation of Infectious Disease specialist for ongoing management in light of negative cultures and need for ongoing outpatient antibiotic therapy Status: Acute (2) Hypokalemia: Problem details: Replace and monitor. Probably due to hydrochlorothiazide. Consider outpatient potassium supplement Status: Acute (3) Right-sided chest pain: Problem details: Recurrent chest pain evaluated in the emergency department yesterday. Reassuring evaluation. No PE. Status: Acute (4) Prediabetes: Problem details: - Last A1c 5.7 Status: Acute (5) History of DVT (deep vein thrombosis): Problem details: Recommend prophylactic dose of Xarelto or Eliquis Status: Acute (6) KARINA (obstructive sleep apnea): Problem details: Not on CPAP. She manages this by sleeping on her side. At risk for worsening of this condition with opioid therapy. Status: Acute (7) Asthma: Problem details: She reports this is well controlled with her routine inhaler use Status: Acute (8) Rash: Problem details: Right proximal thigh due to irritation from knee immobilizer brace Status: Acute Plan - Complete 23 hour perioperative antibiotics. - PT/OT consult for education and assistance. - Social work consult for discharge planning - Prescribed analgesics as needed - DVT prophylaxis: Rivaroxaban for 14 days, followed by aspirin twice daily for 2 additional weeks, walking, and SCDs. Ambulation with brace on until quad control is present and strong. She starts physical therapy tomorrow, 03/27/2025 - Placed order for topical hydrocortisone topical here at the hospital to help with the proximal right thigh rash and itching. This medicine was also provided for discharge. - Anticipation is for discharge to home with family/friends today 03/26/2025 if the patient remains medically stable, pain is controlled, and they are safe with mobilization.
[2025-03-26] MEDS: cefTRIAXone 2 GM in 0.9 % SODIUM CHLORIDE Mini-bag 100 ML IVPB (17:07)
[2025-03-26] MEDS: SODIUM CHLORIDE 0.9 % (FLUSH) 10 ML SYRINGE IVF (17:08)
[2025-03-26] MEDS: 0.9 % SODIUM CHLORIDE 250 ml IV (17:08)
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
== END 2025-03-26 18:37 | disposition home or self-care (01) | DRG 302 ==
PROVIDERS: Admitting Provider Orthopaedic Surgery Sports Medicine; PCP Family Medicine; Visit Provider Orthopaedic Surgery Sports Medicine
PROC: 0SPC09Z Removal of Liner from Right Knee Joint, Open Approach (ICD-10-PCS; CPT 27447; principal; 2025-03-25 09:30)
DX: T84.53XA Infection and inflammatory reaction due to internal right knee prosthesis, initial encounter (principal); M25.461 Effusion, right knee; G89.18 Other acute postprocedural pain; R07.89 Other chest pain; R73.03 Prediabetes; R21 Rash and other nonspecific skin eruption; I10 Essential (primary) hypertension; Z86.718 Personal history of other venous thrombosis and embolism; G47.33 Obstructive sleep apnea (adult) (pediatric); E87.6 Hypokalemia; J45.909 Unspecified asthma, uncomplicated; F41.9 Anxiety disorder, unspecified; Z79.82 Long term (current) use of aspirin; Z79.84 Long term (current) use of oral hypoglycemic drugs; E78.5 Hyperlipidemia, unspecified
CPT/HCPCS: 01402; 36415; 64447; 64454; 71275; 73560; 76942; 80048; 80053; 80076; 82565; 83735; 84132; 84295; 84484; 84520; 85025; 86140; 87081; 93005; 96365; 96374; 97116; 97161; 99284; 99285; G0463; A4221; A9270; C1713; C1776; J0665; J0690; J0696; J1100; J1171; J2250; J2270; J2371; J2405; J2704; J3010; J3260; J7050; J7120; Q9967

== ENCOUNTER 2025-04-04 11:15 | Outpatient (RCR) | payer BC, SELFPAY ==
[2025-03-22 14:22] VITALS: BP 149/79; PULSE 92; RESP 18; TEMP 36.7; O2SAT 96
[2025-03-22] MEDS: cefTRIAXone 2 GM in 0.9 % SODIUM CHLORIDE Mini-bag 100 ML IVPB (14:33)
--- NOTE | 2025-03-22 18:04 | PC.NURSE ---
Patient here for outpatient antibiotic infusion. PICC in right upper arm flushed without difficulty. Medication infused. Patient escorted to front entrance via wheelchair accompanied by her .
[2025-03-23] MEDS: SODIUM CHLORIDE 0.9 % (FLUSH) 10 ML SYRINGE IVF (13:51)
[2025-03-23] MEDS: cefTRIAXone 2 GM in 0.9 % SODIUM CHLORIDE Mini-bag 100 ML IVPB (13:51)
[2025-03-23 13:53] VITALS: BP 154/91; PULSE 95; RESP 18; TEMP 36.1; O2SAT 97
[2025-03-24 14:00] VITALS: BP 141/83; PULSE 83; RESP 20; TEMP 36.6; O2SAT 95
[2025-03-24] MEDS: cefTRIAXone 2 GM in 0.9 % SODIUM CHLORIDE Mini-bag 100 ML IVPB (14:03)
[2025-03-24] MEDS: SODIUM CHLORIDE 0.9 % (FLUSH) 10 ML SYRINGE IVF (14:04)
--- NOTE | 2025-03-24 17:09 | PC.NURSE ---
During conversation with patient she c/o some discomfort in right chest. Spoke with hospitalist and recommended patient be seen in the ED. Updated patient.
[2025-03-27 13:57] VITALS: BP 135/74; PULSE 94; RESP 20; TEMP 36.8; O2SAT 95
[2025-03-27] MEDS: cefTRIAXone 2 GM in 0.9 % SODIUM CHLORIDE Mini-bag 100 ML IVPB (14:01)
[2025-03-27] MEDS: SODIUM CHLORIDE 0.9 % (FLUSH) 10 ML SYRINGE IVF (14:01)
[2025-03-28 14:00] VITALS: BP 135/80; PULSE 85; RESP 20; TEMP 36.7; O2SAT 94
[2025-03-28] MEDS: cefTRIAXone 2 GM in 0.9 % SODIUM CHLORIDE Mini-bag 100 ML IVPB (14:37)
--- NOTE | 2025-03-28 18:02 | PC.NURSE ---
This nurse spoke with JIN Hodgson from [facility] Infectious Disease. (P: [phone]). Stated that the home care agency does not service the patient's area for home visits but can still set up IV meds. Gokul asked if patient could get weekly PICC dressing changes and weekly labs on the M/S floor. This nurse spoke with Dr. Castrejon on facilitating this. Call Goklu if any questions.
[2025-03-29 16:04] VITALS: BP 138/79; PULSE 88; RESP 18; TEMP 36.7; O2SAT 98
[2025-03-29] MEDS: cefTRIAXone 2 GM in 0.9 % SODIUM CHLORIDE Mini-bag 100 ML IVPB (16:06)
[2025-03-29 16:45] VITALS: BP 138/84; PULSE 84; RESP 18; O2SAT 96
--- NOTE | 2025-03-29 16:45 | PC.NURSE ---
VSS, no transfusion reactions noted.
--- NOTE | 2025-04-04 11:29 | PC.NURSE ---
Was called by admission that was here to be seen for dressing change and lab work. I did not have any orders or knowledge of this patient coming today for this. Made some phone calls and currently working on getting this problem solved.
[2025-04-04 14:22] LABS: Hematocrit* 36.0 % (33.0-51.0); Hemoglobin* 11.7 gm/dL (12.0-16.0); Immature Granulocytes Abs Auto 0.01 K/uL (0.00-0.30); Immature Granulocytes Pct Auto 0.1 %; Lymphocytes Absolute Auto 1.52 K/uL (0.90-2.90); Mean Corpuscular HGB Conc 33 gm/dL (32-36); Mean Corpuscular Hemoglobin 30 pg (26-34); Mean Corpuscular Volume 93 fL (80-100); RDW Coefficient of Variation % 12.4 % (11.5-15.5); Red Blood Count* 3.86 m/uL (4.00-5.20); White Blood Count* 6.86 K/uL (4.50-11.00)
[2025-04-04 14:28] LABS: Slide Review Reflex No
[2025-04-04 14:56] LABS: Chloride* 101 mmol/L (96-114)
[2025-04-04 14:57] LABS: Albumin* 3.9 g/dL (3.3-5.0); Potassium* 3.0 mmol/L (3.6-5.1); Sodium* 136 mmol/L (135-149)
[2025-04-04 14:59] LABS: Blood Urea Nitrogen* 12 mg/dL (7-30); Creatinine* 0.6 mg/dL (0.5-1.5); Estimated Glomerular Filt Rate 102 ml/min
[2025-04-04 15:00] LABS: Alanine Aminotransferase* 23 U/L (4-35); Alkaline Phosphatase* 57 U/L (40-150); Anion Gap 6 mEq/L (7-15); Aspartate Amino Transferase* 38 U/L (12-35); Bilirubin Total* 0.3 mg/dL (0.1-1.5); Calcium* 9.5 mg/dL (8.4-10.6); Carbon Dioxide* 29 mmol/L (20-32); Glucose* 93 mg/dL (60-115); Total Protein* 7.2 g/dL (6.0-8.3)
== END 2025-07-03 23:59 | disposition home or self-care (01) ==
LOC: MS OUT 11:15
PROVIDERS: Physician Assistant Surgical; PCP Family Medicine; Visit Provider Family Medicine
DX: Z51.89 Encounter for other specified aftercare (principal)
CPT/HCPCS: 36415; 80053; 85025; 86140; 96365; G0463; A4221; J0696; J7050

== ENCOUNTER 2025-05-10 11:00 | Outpatient (RCR) | payer BC, SELFPAY | END 2025-09-07 23:59 | disposition home or self-care (01) | PROVIDERS: PCP Family Medicine; Visit Provider Orthopaedic Surgery Sports Medicine | DX: Z47.1 Aftercare following joint replacement surgery (principal); Z96.651 Presence of right artificial knee joint; Z51.89 Encounter for other specified aftercare | CPT/HCPCS: 97110; 97116; 97140; 97162 ==